=== PATIENT | female | born 1975 | race Caucasian/White ===

== ENCOUNTER 2021-12-11 16:10 | Observation (INO) ==
[2021-12-11] MEDS ORDERED: METOCLOPRAMIDE HCL INJ 5 MG/ML 2 ML VIAL IV ONE (16:23)
[2021-12-11] MEDS ORDERED: KETOROLAC TROMETHAMINE 15 MG/ML VIAL IV STA (16:23)
[2021-12-11] MEDS ORDERED: diphenhydrAMINE 50 MG/ML VIAL IV STA (16:23)
[2021-12-11] MEDS ORDERED: SODIUM CHLORIDE 0.9% 1000ML 1,000 ML IV ONE ×2 (16:23→20:00)
--- NOTE | 2021-12-11 16:42 | Emergency Department Note ---
History of Present Illness General Chief complaint: Vomiting Stated complaint: VOMITING, ABDOM PAIN Time Seen by Provider: 12/11/21 16:21 History of Present Illness Provider Complaint: + nausea, + vomiting and + abdominal pain Onset (ago): day(s) 5 Description of Vomiting: no bilious, no bloody or no coffee grounds Associated Abdominal Pain: Yes Location of pain: + diffuse Maximum Pain Intensity: 10 Current Pain Intensity: 9 Quality: + stabbing, + aching, + sharp and + dull Pain Consistency: + intermittent Relieved By: + none Exacerbated By: + eating and + vomiting Context: + marijuana use; no foreign travel, no possible food poisoning, no sick contacts, no recent antibiotic use, no recent surgery/procedure, no history of abdominal surgery, no alcohol abuse or no anticoagulant use Associated symptoms: + myalgias, + malaise and + bloating; no chest pain, no cough, no fever/chills, no headaches, no rash, no shortness of breath, no fecal incontinence, no tenesmus or no palpitation HPI Narrative: at bedside reports that the patient was seen in the emergency department 4 nights ago and was discharged. He states that after she was discharged she kept vomiting so he took her to an outside facility and they did blood work and a CAT scan and then released her but she continues to have vomiting. Home Medications Medication Instructions Recorded Confirmed Type ergocalciferol (vitamin D2) 1,250 1,250 mcg PO WK 12/08/21 12/11/21 History mcg (50,000 unit) capsule (Vitamin D2) gabapentin 100 mg tablet 100 mg PO TID 12/08/21 12/11/21 History mirtazapine 30 mg tablet (Remeron) 30 mg PO HS 12/08/21 12/11/21 History nortriptyline 50 mg capsule 100 mg PO HS 12/08/21 12/11/21 History ondansetron 4 mg disintegrating 4 mg PO Q6H PRN #12 tab 12/08/21 12/11/21 Rx tablet promethazine 25 mg rectal 25 mg SD Q6H PRN 12/08/21 12/11/21 History suppository promethazine 25 mg rectal 25 mg SD Q6H PRN #12 ea 12/08/21 12/11/21 Rx suppository promethazine 25 mg tablet 25 mg PO Q6H PRN 12/08/21 12/11/21 History rizatriptan 10 mg tablet (Maxalt) 10 mg PO DIRECTED PRN 12/08/21 12/11/21 History metoclopramide HCl 10 mg tablet 10 mg PO ACHS 12/11/21 12/11/21 History Allergies Allergy/AdvReac Type Severity Reaction Status Date / Time azithromycin [From Zithromax] Allergy Intermediate Rash Verified 12/08/21 01:09 divalproex sodium Allergy Intermediate Rash Verified 12/08/21 01:09 [From Depakote] erythromycin base Allergy Intermediate Rash Verified 12/08/21 01:09 lamotrigine [From Lamictal] Allergy Intermediate Rash Verified 12/08/21 01:09 MRI CONTRAST Allergy Intermediate SNEEZING, Uncoded 12/08/21 01:09 RASH Past Med/Surg History Medical History Cyclic vomiting syndrome Surgical History History of section History of cholecystectomy Social History Smoking Status: Never smoker Tobacco Type: E-cigarettes / Vaping Preferred Language: [place] Feels Safe at Home: Yes Review of Systems A total of 10 systems reviewed and were otherwise negative Physical Exam Vital Signs: Vital Signs - 24 hr 12/11/21 16:11 12/11/21 17:39 12/11/21 18:40 Temperature 36.0 C L Temperature Source Temporal Artery Sc an Pulse Rate 100 H 84 Pulse Rate [Left F christian] 99 H 78 Pulse Rhythm Regular Regular Pulse Rhythm [Left Finger] Regular Regular Pulse Strength Normal Pulse Strength [Le ft Finger] Normal Normal Respiratory Rate 22 20 20 Respiratory Effort / Characteristics Non-Labored Sponta neous Non-Labored Sponta neous Non-Labored Sponta neous Respiratory Depth Normal Normal Normal Respiratory Patter n Regular Regular Blood Pressure 132/92 Blood Pressure [Ri ght Arm] 146/85 H 157/95 H Blood Pressure Susan n 105 Blood Pressure Susan n [Right Arm] 105 115 Blood Pressure Pos ition [Right Arm] Sitting Sitting Pulse Oximetry 96 99 97 Oxygen Delivery Me thod Room Air Room Air Room Air Sepsis Recent Feve r Within 48 Hours No Sepsis New/Unexpla ined Change in Men elizabeth Status N/A Sepsis Action Take n by Nursing No Action Required 12/11/21 20:30 Temperature Temperature Source Pulse Rate Pulse Rate [Left F christian] 74 Pulse Rhythm Pulse Rhythm [Left Finger] Pulse Strength Pulse Strength [Le ft Finger] Respiratory Rate 18 Respiratory Effort / Characteristics Respiratory Depth Respiratory Patter n Blood Pressure Blood Pressure [Ri ght Arm] 165/103 H Blood Pressure Susan n Blood Pressure Susan n [Right Arm] 123 Blood Pressure Pos ition [Right Arm] Pulse Oximetry 99 Oxygen Delivery Me thod Room Air Sepsis Recent Feve r Within 48 Hours Sepsis New/Unexpla ined Change in Men elizabeth Status Sepsis Action Take n by Nursing Physical Exam: Physical Exam GENERAL: She is oriented to person, place, and time. She appears well-developed and well-nourished. She does not appear distressed. HENT: Exam performed. -Head: Normocephalic and atraumatic. -Right Ear: External ear normal. No mastoid tenderness. -Left Ear: External ear normal. No mastoid tenderness. -Mouth/Throat: The oropharynx is clear and moist. No trismus in the jaw. No dental abscesses or uvula swelling. No oropharyngeal exudate or tonsillar abscesses. EYES: Conjunctivae and EOM are normal. Pupils are equal, round, and reactive to light. Right eye exhibits no discharge. Left eye exhibits no discharge. No scleral icterus. NECK: Normal range of motion. Neck supple. No JVD present. No spinous process tenderness present. No carotid bruit present. No rigidity. No tracheal deviation and normal range of motion present. No Brudzinski's sign and no Kernig's sign noted. CV: Normal rate, regular rhythm, normal heart sounds and intact distal pulses. There is no peripheral edema. Palpable radial pulses bue. PULM/CHEST: Effort normal and breath sounds normal. No respiratory distress. No stridor. She has no wheezes. She has no rales. -Chest Wall: She exhibits no tenderness. ABD: The abdomen is soft. Bowel sounds are normal. She has no distension. No mass is present. There is no tenderness. There is no rebound, no guarding, no Arroyo's sign and no tenderness at McBurney's point. Rovsig negative MUSC/SKEL: Normal range of motion. There is no peripheral edema, tenderness or deformity. LYMPH: No cervical adenopathy. NEURO: She is alert and oriented to person, place, and time. She has normal strength. No cranial nerve deficit or sensory deficit. Coordination and gait normal. GCS eye subscore is 4. GCS verbal subscore is 5. GCS motor subscore is 6. Cerebellar tests wnl. SKIN: Skin is warm and dry. She is not diaphoretic. PSYCH: She has a normal mood and affect. Behavior is normal. Judgment and thought content normal. Course Course 1621: The patient was evaluated in room C7. A complete history and physical exam was performed Cardiac monitoring: An order was placed for continuous cardiac monitoring. The monitor shows a rate of 100 with sinus rhythm 1920: Vital signs stable. Labs show leukocytosis of 15. CT of the abdomen within normal limits. Patient is required multiple doses of analgesia and antiemetics in the emergency department. On reassessment the patient states she is still having abdominal pain nausea and vomiting does not feel like she can go home. The patient will be admitted to the [facility] hospitalist team Dr. Wayne notified. Administered Medications Ketorolac Tromethamine (Ketorolac Tromethamine 15 Mg/Ml Vial) 10 mg IV Q6H PRN PRN Reason: pain Stop: 12/16/21 23:14 Last Admin: 12/11/21 23:21 Dose: 10 mg Documented by: [id number] Discontinued Medications Acetaminophen (Acetaminophen 1000 Mg/100 Ml Iv) 1,000 mg IV ONE STA Stop: 12/11/21 19:52 Last Admin: 12/11/21 20:11 Dose: 1,000 mg Documented by: [id number] Al Hydrox/Mg Hydrox/Simethicone (Gi Cocktail Ed Use) 1 dose PO ONE STA Stop: 12/11/21 20:27 Last Admin: 12/11/21 20:40 Dose: 1 dose Documented by: [id number] Al Hydrox/Mg Hydrox/Simethicone (Gi Cocktail Ed Use) Confirm Administered Dose 1 dose PO .STK-MED ONE Stop: 12/11/21 20:29 Last Admin: 12/11/21 20:41 Dose: Not Given Documented by: [id number] Capsaicin (Capsaicin Cr 0.075% 60 Gm Tube) 1 appln EXT ONE STA Stop: 12/11/21 19:52 Last Admin: 12/11/21 20:41 Dose: 1 appln Documented by: [id number] Diclofenac Sodium (Diclofenac Sod 1% Gel 100 Gm Tube) 2 gm EXT ONE STA; Protocol Stop: 12/11/21 19:52 Last Admin: 12/11/21 20:41 Dose: 2 gm Documented by: [id number] Diphenhydramine HCl (Diphenhydramine 50 Mg/Ml Vial) 25 mg IV NOW STA Stop: 12/11/21 16:24 Last Admin: 12/11/21 16:38 Dose: 25 mg Documented by: [id number] Sodium Chloride (Nss 1000ml) 1,000 mls @ 999 mls/hr IV .Q1H1M ONE Stop: 12/11/21 17:23 Last Infusion: 12/11/21 18:11 Dose: 0 mls/hr Documented by: [id number] Admin: 12/11/21 16:38 Dose: 999 mls/hr Documented by: [id number] Sodium Chloride (Nss 1000ml) 1,000 mls @ 999 mls/hr IV .Q1H1M ONE Stop: 12/11/21 21:00 Last Infusion: 12/11/21 21:56 Dose: 0 mls/hr Documented by: [id number] Admin: 12/11/21 20:53 Dose: 999 mls/hr Documented by: [id number] Potassium Chloride (K Filippo / Wtr) 10 meq in 100 mls @ 100 mls/hr IV ONE ONE; Protocol Stop: 12/11/21 20:59 Last Infusion: 12/11/21 21:56 Dose: 0 mls/hr Documented by: [id number] Admin: 12/11/21 20:40 Dose: 100 mls/hr Documented by: [id number] Sodium Chloride (Nss 1000ml) 1,000 mls @ 100 mls/hr IV .Q10H KRISTEN Stop: 12/12/21 17:59 Last Admin: 12/11/21 23:14 Dose: 100 mls/hr Documented by: [id number] Ioversol (Optiray 320 100ml) 91 ml IV ONCE ONE Stop: 12/11/21 18:27 Last Admin: 12/11/21 18:28 Dose: 91 ml Documented by: [id number] Ketorolac Tromethamine (Ketorolac Tromethamine 15 Mg/Ml Vial) 15 mg IV NOW STA Stop: 12/11/21 16:24 Last Admin: 12/11/21 16:38 Dose: 15 mg Documented by: [id number] Metoclopramide HCl (Metoclopramide Hcl Inj 5 Mg/Ml 2 Ml Vial) 5 mg IV ONE ONE Stop: 12/11/21 16:24 Last Admin: 12/11/21 16:38 Dose: 5 mg Documented by: [id number] Mirtazapine (Mirtazapine Tab 15 Mg Tab) 30 mg PO NOW STA Stop: 12/11/21 21:56 Last Admin: 12/11/21 23:14 Dose: 30 mg Documented by: [id number] Morphine Sulfate (Morphine Sulfate 4 Mg/Ml 1 Ml Carp\Vial) 4 mg IV NOW STA Stop: 12/11/21 18:27 Last Admin: 12/11/21 18:37 Dose: 4 mg Documented by: [id number] Nortriptyline HCl (Nortriptyline Hcl 25 Mg Cap) 100 mg PO ONE STA Stop: 12/11/21 19:52 Last Admin: 12/11/21 20:41 Dose: 100 mg Documented by: [id number] Ondansetron HCl (Ondansetron Inj 2 Mg/Ml 2 Ml Vial) 4 mg IV NOW STA Stop: 12/11/21 16:37 Last Admin: 12/11/21 18:37 Dose: 4 mg Documented by: [id number] Medical Decision Making Laboratory Data Result diagrams: 12/11/21 16:33 12/11/21 22:33 Lab Results 12/11/21 12/11/21 12/11/21 Range/Units 16:33 16:33 16:33 WBC 15.42 H (4.8-10.8) K/uL RBC 4.90 (4.2-5.4) M/uL Hgb 15.2 (12.0-16.0) g/dL POC Hgb (12.0-16.0) g/dl Hct 43.7 (37-47) % POC Hct (37-47) % MCV 89.2 (80-100) fL MCH 31.0 (25-34) pg MCHC 34.8 (32-36) g/dL RDW Std Deviation 39.5 (36.4-46.3) fL RDW Coeff of Alex 12.3 (11.5-14.5) % Plt Count 446 H (130-400) K/uL MPV 9.0 (7.4-10.4) fL Immature Gran % (Auto) 0.2 % Neut % (Auto) 84.1 % Lymph % (Auto) 11.3 % [place] % (Auto) 3.9 % Eos % (Auto) 0.2 % Baso % (Auto) 0.3 % Neut # (Auto) 12.97 H (1.4-6.5) K/uL Lymph # (Auto) 1.74 (1.2-3.4) K/uL [place] # (Auto) 0.60 H (0.11-0.59) K/uL Eos # (Auto) 0.03 (0-0.5) K/uL Baso # (Auto) 0.05 (0-0.2) K/uL Immature Gran # (Auto) 0.03 H (0.00-0.02) K/uL POC Sodium (135-144) mmol/L Sodium 141 (136-145) mmol/L POC Potassium (3.3-5.0) mmol/L Potassium TNP POC Chloride (101-112) mmol/L Chloride 103 (98-107) mmol/L Carbon Dioxide 24 (21-32) mmol/L POC Total CO2 (24-31) mmol/L Anion Gap 14 H (3-11) POC Anion Gap (16-25) mmol/L POC BUN (7-18) mg/dl BUN 29 H (6-23) mg/dl Creatinine 0.92 (0.6-1.2) mg/dl POC Creatinine (0.6-1.3) mg/dl Est Cr Clr Drug Dosing 73.3 ml/min Est GFR ( Amer) 87.2 ml/min Est GFR (Non-Af Amer) 75.2 ml/min BUN/Creatinine Ratio 31.5 H (10-20) Glucose 140 H (70-99(Fasting)) mg/dl POC Glucose (other) (70-99) mg/dl Calcium 9.9 (8.5-10.1) mg/dl POC Ioniz Calcium Heather (1.12-1.32) mmol/l Total Bilirubin 0.9 (0.2-1.0) mg/dl Direct Bilirubin TNP AST TNP ALT 42 (7-52) U/L Alkaline Phosphatase 73 (34-104) U/L Total Protein 8.2 (6.0-8.3) gm/dl Albumin 4.9 (3.4-5.0) gm/dl Lipase 14 (11-82) U/L Lyme Disease IgG Ab Negative (Negative) Lyme Disease IgM Ab Equivocal A (Negative) SARS-CoV-2, RNA, NAAT (NEGATIVE) 12/11/21 12/11/21 Range/Units 18:04 18:42 WBC (4.8-10.8) K/uL RBC (4.2-5.4) M/uL Hgb (12.0-16.0) g/dL POC Hgb 14.3 (12.0-16.0) g/dl Hct (37-47) % POC Hct 42 (37-47) % MCV (80-100) fL MCH (25-34) pg MCHC (32-36) g/dL RDW Std Deviation (36.4-46.3) fL RDW Coeff of Alex (11.5-14.5) % Plt Count (130-400) K/uL MPV (7.4-10.4) fL Immature Gran % (Auto) % Neut % (Auto) % Lymph % (Auto) % [place] % (Auto) % Eos % (Auto) % Baso % (Auto) % Neut # (Auto) (1.4-6.5) K/uL Lymph # (Auto) (1.2-3.4) K/uL [place] # (Auto) (0.11-0.59) K/uL Eos # (Auto) (0-0.5) K/uL Baso # (Auto) (0-0.2) K/uL Immature Gran # (Auto) (0.00-0.02) K/uL POC Sodium 142 (135-144) mmol/L Sodium (136-145) mmol/L POC Potassium 3.0 L (3.3-5.0) mmol/L Potassium POC Chloride 106 (101-112) mmol/L Chloride (98-107) mmol/L Carbon Dioxide (21-32) mmol/L POC Total CO2 22 L (24-31) mmol/L Anion Gap (3-11) POC Anion Gap 18.0 (16-25) mmol/L POC BUN 24 H (7-18) mg/dl BUN (6-23) mg/dl Creatinine (0.6-1.2) mg/dl POC Creatinine 0.8 (0.6-1.3) mg/dl Est Cr Clr Drug Dosing ml/min Est GFR ( Amer) ml/min Est GFR (Non-Af Amer) ml/min BUN/Creatinine Ratio (10-20) Glucose (70-99(Fasting)) mg/dl POC Glucose (other) 105 H (70-99) mg/dl Calcium (8.5-10.1) mg/dl POC Ioniz Calcium Heather 1.12 (1.12-1.32) mmol/l Total Bilirubin (0.2-1.0) mg/dl Direct Bilirubin AST ALT (7-52) U/L Alkaline Phosphatase (34-104) U/L Total Protein (6.0-8.3) gm/dl Albumin (3.4-5.0) gm/dl Lipase (11-82) U/L Lyme Disease IgG Ab (Negative) Lyme Disease IgM Ab (Negative) SARS-CoV-2, RNA, NAAT NEGATIVE (NEGATIVE) Imaging Data Radiologist's Impression: Abdomen/Pelvis CT 12/11/21 16:23 CT abd pelvis IV con only CLINICAL HISTORY: nv TECHNIQUE: Helical axial images of the abdomen and pelvis were obtained and displayed. Automated dose lowering techniques and/or adjustment according to patient size were utilized for this exam. This exam was performed with intravenous contrast. CT DOSE: 295.54 mGy.cm COMPARISON: None available at the time of this dictation. FINDINGS: Lower chest: No acute abnormality Liver: Hepatic steatosis is noted. Gallbladder and biliary tree: Patient is status post cholecystectomy. No intra- or extrahepatic biliary ductal dilation. Pancreas: Unremarkable, no focal lesions. Spleen: Unremarkable. Adrenals: There is a left adrenal nodule measuring 14 mm in diameter. Kidneys and ureters: Bilateral renal cysts noted. Bladder: Limited evaluation due to underdistention. Reproductive organs: Unremarkable. Bowel: Unremarkable appearance of the bowel. The appendix is normal. No evidence of bowel obstruction. There is a moderate hiatal hernia. Lymph nodes Retroperitoneal: Unremarkable. Mesenteric: Unremarkable. Pelvic: Unremarkable. Peritoneum: Metallic densities are seen in the left upper quadrant. Otherwise no abnormalities are seen. Vessels: Unremarkable. Abdominal wall: Unremarkable. Bones: Degenerative changes in the visualized spine. IMPRESSION: No acute abnormalities, in particular no evidence of bowel obstruction or pancreatitis. ACT 112: Negative or not required by law. Electronically signed by: Arvin Mancia M.D. 12/11/2021 7:09 PM MDM Narrative Vital signs stable. Labs show leukocytosis of 15. CT of the abdomen within normal limits. Patient is required multiple doses of analgesia and antiemetics in the emergency department. On reassessment the patient states she is still having abdominal pain nausea and vomiting does not feel like she can go home. The patient will be admitted to the [facility] hospitalist team Dr. Wayne notified. Impression & Plan Intractable nausea and vomiting Discharge Plan Visit Data Chief Complaint: Vomiting Stated Complaint: VOMITING, ABDOM PAIN ED Provider: Oseas Still Discharge Problem: Intractable nausea and vomiting Patient Disposition: Admitted As Inpatient Discharge Instructions Interventions: ED Discharge Assessment Last Done: 12/11/21 22:39
[2021-12-11 16:55] LABS: Basophils # (auto) 0.05 K/uL (0-0.2); Basophils % (auto) 0.3 %; Eosinophils # (auto) 0.03 K/uL (0-0.5); Eosinophils % (auto) 0.2 %; Hematocrit (blood only) 43.7 % (37-47); Hemoglobin 15.2 g/dL (12.0-16.0); Immature Granulocytes # (auto) 0.03 K/uL (0.00-0.02); Immature Granulocytes % (auto) 0.2 %; Lymphocytes # (auto) 1.74 K/uL (1.2-3.4); Lymphocytes % (auto) 11.3 %; Mean Corpuscular Hgb Conc 34.8 g/dL (32-36); Mean Corpuscular Volume 89.2 fL (80-100); Monocytes % (auto) 3.9 %; Neutrophils # (auto) 12.97 K/uL (1.4-6.5); Neutrophils % (auto) 84.1 %; Platelet Count 446 K/uL (130-400); RDW Coefficient of Variation 12.3 % (11.5-14.5); RDW Standard Deviation 39.5 fL (36.4-46.3); White Blood Count 15.42 K/uL (4.8-10.8)
[2021-12-11 17:46] LABS: Alanine Aminotransferase 42 U/L (7-52); Albumin Level 4.9 gm/dl (3.4-5.0); Alkaline Phosphatase 73 U/L (34-104); Anion Gap 14 (3-11); BUN Creatinine Ratio 31.5 (10-20); Bilirubin,Total 0.9 mg/dl (0.2-1.0); Blood Urea Nitrogen 29 mg/dl (6-23); Calcium 9.9 mg/dl (8.5-10.1); Carbon Dioxide 24 mmol/L (21-32); Chloride 103 mmol/L (98-107); Creatinine Clr Calc Pharmacy 73.3 ml/min; Est GFR (African American) 87.2 ml/min; Est GFR (Non-African American) 75.2 ml/min; Glucose 140 mg/dl (70-99(Fasting)); Lipase 14 U/L (11-82); Sodium 141 mmol/L (136-145); Total Protein 8.2 gm/dl (6.0-8.3)
[2021-12-11 18:08] LABS: Lyme Ab IgG w/WB Rflx Negative (Negative)
[2021-12-11] MEDS: ONDANSETRON INJ 2 MG/ML 2 ML VIAL IV STA ×2 (18:11→18:37)
[2021-12-11 18:16] LABS: iSTAT Creatinine 0.8 mg/dl (0.6-1.3); iSTAT Hemoglobin 14.3 g/dl (12.0-16.0); iSTAT Ionized Calcium 1.12 mmol/l (1.12-1.32)
[2021-12-11] MEDS ORDERED: OPTIRAY 320 100ml IV ONE (18:26)
[2021-12-11] MEDS ORDERED: MoRPHine SULFATE 4 MG/ML 1 ML CARP\\VIAL IV STA (18:26)
[2021-12-11 18:36] LABS: Lyme Ab IgM w/WB Rflx Equivocal (Negative)
--- NOTE | 2021-12-11 19:11 | CT Scan Report ---
CT abd pelvis IV con only CLINICAL HISTORY: nv TECHNIQUE: Helical axial images of the abdomen and pelvis were obtained and displayed. Automated dose lowering techniques and/or adjustment according to patient size were utilized for this exam. This e xam was performed with intravenous contrast. CT DOSE: 295.54 mGy.cm COMPARISON: None available at the time of this dictation. FINDINGS: Lower chest: No acute abnormality Liver: Hepatic steatosis is noted. Gallbladder and biliary tree: Patient is status post cholecystectomy. No intra- or extrahepatic bilia ry ductal dilation. Pancreas: Unremarkable, no focal lesions. Spleen: Unremarkable. Adrenals: There is a left adrenal nodule measuring 14 mm in diameter. Kidneys and ureters: Bilateral renal cysts noted. Bladder: Limited evaluation due to underdistention. Reproductive organs: Unremarkable. Bowel: Unremarkable appearance of the bowel. The appendix is normal. No evidence of bowel obstruction . There is a moderate hiatal hernia. Lymph nodes Retroperitoneal: Unremarkable. Mesenteric: Unremarkable. Pelvic: Unremarkable. Peritoneum: Metallic densities are seen in the left upper quadrant. Otherwise no abnormalities are se en. Vessels: Unremarkable. Abdominal wall: Unremarkable. Bones: Degenerative changes in the visualized spine. IMPRESSION: No acute abnormalities, in particular no evidence of bowel obstruction or pancreatitis. ACT 112: Negative or not required by law. Electronically signed by: Arvin Mancia M.D. 12/11/2021 7:09 PM
--- NOTE | 2021-12-11 19:47 | History & Physical Report ---
Date of Service December 11, 2021 Assessment & Plan (1) Intractable nausea and vomiting: Plan: 46 year old female w/ PMHx of anxiety, marijuana use, and cyclic vomiting syndrome who presents w/ intractable nausea, vomiting, and associated epigastric abd pain. - CT abd: No acute abnormalities, in particular no evidence of bowel obstruction or pancreatitis. - labs reviewed: hypokalemia, leukocytosis, slight anion gap - reassuring exam; appears euvolemic; good cap refill. BP slightly hypertensive. - replete electrolytes as needed - antiemetics, pain control as needed - has prior diagnosis of cyclic vomiting syndrome. considered cannabanoid hyperemesis syndrome given current use. 12/08/21 UDS w/ >5000 marijuana. lower suspicion for gastroenteritis or gallbladder pathology (s/p cholecystectomy) - trialed topical capsaicin w/o relief - will check trop and ecg, pending - maintenance fluids (2) Epigastric abdominal pain: Plan: - see above (3) Cyclic vomiting syndrome: Plan: - noted hx of (4) Hypokalemia: Plan: - repleting (5) Leukocytosis: Plan: - most likely reactive 2/2 vomiting - lower suspicion for UTI (12/08/21 urine culture growing lactobacillus; no urinary symptoms), sepsis, gastroenteritis (6) Adrenal nodule: Plan: - per CT abd: Left adrenal nodule is noted measuring greater density than lipid rich adenoma. If not characterized, nonemergent adrenal mass protocol can be performed. - outpatient follow up Plan: FEN/GI: Clear liquid diet. maintenance NSS 100mL/hr code: full ppx: scds dispo: med surg History of Present Illness Chief Complaint: nausea, vomiting, and abdominal pain Primary Care Provider: Shyam Rdz 46 year old female w/ PMHx of anxiety, marijuana use, and cyclic vomiting syndrome who presents w/ intractable nausea, vomiting, and associated epigastric abd pain since 12/07/21. She describes 15 hours of multiple episodes of N/V during onset. She was seen at [facility] ED on 12/08/21 and was sent home. She returns today for continued symptoms. Her main complaint today is nausea, vomiting (foodstuffs) and 10/10 epigastric abd pain. Last emesis was after going to CT scan. She has not taken her home PO meds in several days. Currently, aside from nausea and abd pain, she does have anxiety. Denies fever/chills, chest pain, SOB, urinary symptoms. Patient states that she was diagnosed w/ cyclic vomiting syndrome by an outside provider after trialing 1 year off of marijuana w/ continued symptoms. She has been on nortriptyline 100mg qhs for the past year and states this helped control her vomiting symptoms greatly. Patient follows a linen checker in [place] for HTN. She states she had workup in past for chest pain radiating to arms, but was not thought to be ischemia related and has not had stress test. ED course: IV morphine, Reglan, Benadrl, toradol, NSS. Considered home dispo, but trialed IV tylenol, home dose nortriptyline, topical capsaicin, Voltaren gel, GI cocktail w/o relief on re-exam. Allergies Allergy/AdvReac Type Severity Reaction Status Date / Time azithromycin [From Zithromax] Allergy Intermediate Rash Verified 12/08/21 01:09 divalproex sodium Allergy Intermediate Rash Verified 12/08/21 01:09 [From Depakote] erythromycin base Allergy Intermediate Rash Verified 12/08/21 01:09 lamotrigine [From Lamictal] Allergy Intermediate Rash Verified 12/08/21 01:09 MRI CONTRAST Allergy Intermediate SNEEZING, Uncoded 12/08/21 01:09 RASH Home Medications Medication Instructions Recorded Confirmed Type ergocalciferol (vitamin D2) 1,250 1,250 mcg PO WK 12/08/21 12/11/21 History mcg (50,000 unit) capsule (Vitamin D2) gabapentin 100 mg tablet 100 mg PO TID 12/08/21 12/11/21 History mirtazapine 30 mg tablet (Remeron) 30 mg PO HS 12/08/21 12/11/21 History nortriptyline 50 mg capsule 100 mg PO HS 12/08/21 12/11/21 History ondansetron 4 mg disintegrating 4 mg PO Q6H PRN #12 tab 12/08/21 12/11/21 Rx tablet promethazine 25 mg rectal 25 mg MD Q6H PRN 12/08/21 12/11/21 History suppository promethazine 25 mg rectal 25 mg MD Q6H PRN #12 ea 12/08/21 12/11/21 Rx suppository promethazine 25 mg tablet 25 mg PO Q6H PRN 12/08/21 12/11/21 History rizatriptan 10 mg tablet (Maxalt) 10 mg PO DIRECTED PRN 12/08/21 12/11/21 History metoclopramide HCl 10 mg tablet 10 mg PO ACHS 12/11/21 12/11/21 History Past Med/Surg History Medical History Cyclic vomiting syndrome Surgical History History of section History of cholecystectomy Social History Smoking Status: Never smoker Tobacco Type: E-cigarettes / Vaping Preferred Language: Japanese Feels Safe at Home: Yes Review of Systems Review of Systems: mild photophobia As per HPI. Physical Exam Physical Exam: General: Grossly A&O. NAD. Cooperative. HEENT: Atraumatic, normocephalic. EOMI. PERRL. Pulm: CTAB. -wheezes, -rales, -rhonchi. Symmetrical chest rise. No respiratory distress. Cardiac: RRR, -mrg. Radial pulses intact and symmetrical. No LE edema. Cap refill <2s. Abdominal: Mild diffuse abd ttp, worst at epigastrium. No rigidity. Nondistended, soft. Msk: Moving all extremities. Neuro: Normal strength and sensation of extremities. Integ: Warm, dry, and intact. Results & Data Results & Data ([facility]) Vital Signs (Past 12 Hours) Vital Signs Temp Pulse Pulse Resp BP BP Pulse Ox 12/11/21 18:40 78 20 157/95 H 97 12/11/21 17:39 84 99 H 20 146/85 H 99 12/11/21 16:11 36.0 C L 100 H 22 132/92 96 Laboratory Results Cardiac Enzymes 12/11/21 Range/Units 16:33 AST TNP CBC 12/11/21 Range/Units 16:33 WBC 15.42 H (4.8-10.8) K/uL RBC 4.90 (4.2-5.4) M/uL Hgb 15.2 (12.0-16.0) g/dL Hct 43.7 (37-47) % Plt Count 446 H (130-400) K/uL Neut # (Auto) 12.97 H (1.4-6.5) K/uL Lymph # (Auto) 1.74 (1.2-3.4) K/uL Allen # (Auto) 0.60 H (0.11-0.59) K/uL Eos # (Auto) 0.03 (0-0.5) K/uL Baso # (Auto) 0.05 (0-0.2) K/uL Comprehensive Metabolic Panel 12/11/21 Range/Units 16:33 Sodium 141 (136-145) mmol/L Potassium TNP Chloride 103 (98-107) mmol/L Carbon Dioxide 24 (21-32) mmol/L BUN 29 H (6-23) mg/dl Creatinine 0.92 (0.6-1.2) mg/dl Glucose 140 H (70-99(Fasting)) mg/dl Calcium 9.9 (8.5-10.1) mg/dl Direct Bilirubin TNP AST TNP ALT 42 (7-52) U/L Alkaline Phosphatase 73 (34-104) U/L Total Protein 8.2 (6.0-8.3) gm/dl Albumin 4.9 (3.4-5.0) gm/dl Intake and Output 12/11/21 12/11/21 12/11/21 06:59 14:59 22:59 Intake Total 1000 / 1000 Balance 1000 / 1000 Intake: IV 1000 / 1000 Sodium Chloride 0.9% 1000ML 1, 1000 / 1000 000 ml @ 999 mls/hr IV .Q1H1M ONE Rx#:[id number] Other: Weight 68.2 kg Weight Measurement Method Chair Scale Patient Weight 12/12/21 06:59 Weight 68.2 kg Diagnostic Findings Abdomen/Pelvis CT 12/11/21 16:23 CT abd pelvis IV con only CLINICAL HISTORY: nv TECHNIQUE: Helical axial images of the abdomen and pelvis were obtained and displayed. Automated dose lowering techniques and/or adjustment according to patient size were utilized for this exam. This exam was performed with intravenous contrast. CT DOSE: 295.54 mGy.cm COMPARISON: None available at the time of this dictation. FINDINGS: Lower chest: No acute abnormality Liver: Hepatic steatosis is noted. Gallbladder and biliary tree: Patient is status post cholecystectomy. No intra- or extrahepatic biliary ductal dilation. Pancreas: Unremarkable, no focal lesions. Spleen: Unremarkable. Adrenals: There is a left adrenal nodule measuring 14 mm in diameter. Kidneys and ureters: Bilateral renal cysts noted. Bladder: Limited evaluation due to underdistention. Reproductive organs: Unremarkable. Bowel: Unremarkable appearance of the bowel. The appendix is normal. No evidence of bowel obstruction. There is a moderate hiatal hernia. Lymph nodes Retroperitoneal: Unremarkable. Mesenteric: Unremarkable. Pelvic: Unremarkable. Peritoneum: Metallic densities are seen in the left upper quadrant. Otherwise no abnormalities are seen. Vessels: Unremarkable. Abdominal wall: Unremarkable. Bones: Degenerative changes in the visualized spine. IMPRESSION: No acute abnormalities, in particular no evidence of bowel obstruction or pancreatitis. ACT 112: Negative or not required by law. Electronically signed by: Arvin Mancia M.D. 12/11/2021 7:09 PM Code Status & VTE Plan Code Status full VTE Prophylaxis Plan VTE Prophylaxis will be ordered: Yes Supervising Physician Co-Signing Physician Notes Pt seen/examined in conjunction with resident MD Nehemiah Wilson. Orders and plan of admission formulated with resident. 46 y/o F Hx migraine disorder, anxiety disorder, cyclical vomiting disorder. Presents with nausea, vomiting and abdominal pain x 4 days. She was treated in the ER 2 days prior but has not been able to maintain PO intake after DC. Labs are notable for leukocytosis, thrombocytosis, hypokalemia, mild hypocalcemia. A CT abdomen did not show any acute abnormalities. A L adrenal nodule is present. O/E General: AAO x 3, no distress ENT: No erythema or exudates, no thrush Eyes: AJ, EOMI Head and neck: Normocephalic, atraumatic, No JVD, neck is supple. Chest/heart: Nontender, S1,2, RRR, no murmurs, no gallops Lungs: CTAB, no wheezing or crackles Abdomen: Nontender, nondistended, BS+ Neuro: AAO x 3, speech is clear, no unilateral weakness or loss of sensation, coordination intact Musculoskeletal: No joint inflammation, muscle tenderness, FROM Skin: No acute rashes or ulcers Extremities: No clubbing, cyanosis, edema A/P 1) Cyclical vomiting and abdominal pain - She has not responded to multiple antiemetics, capsaicin and her home medications including nortriptyline. IVF, NPO, GI consult. The pt smokes marijuana regularly, but states that she had quit for 1 year and it was determined that marijuana was not causing her cyclical vomiting. 2) Leukocytosis and thrombocytosis - no evidence of infection. This may be stress and dehydration. A UA is pending. 3) Anxiety - cont mirtazapine, nortriptyline. 4) Hypocalcemia is mild - will trend BMP AM - consider IV calcium if trends down. Total time for this admission including review of labs, meds, imaging, records, discussion with pt and ER attending - 38 min Resident Activity Tracking Resident Involvement: Resident Care Provided Care Provided: Adult [facility] Medicine
[2021-12-11] MEDS ORDERED: CAPSAICIN CR 0.075% 60 GM TUBE EXT STA (19:51)
[2021-12-11] MEDS ORDERED: NORTRIPTYLINE HCL 25 MG CAP PO STA (19:51)
[2021-12-11] MEDS ORDERED: DICLOFENAC SOD 1% GEL 100 GM TUBE EXT STA (19:51)
[2021-12-11] MEDS ORDERED: ACETAMINOPHEN 1000 MG/100 ML IV IV STA (19:51)
[2021-12-11] MEDS ORDERED: POTASSIUM CHLORIDE / WTR 10 MEQ/100 ML PLCT IV ONE (20:00)
[2021-12-11] MEDS ORDERED: GI COCKTAIL ED USE PO STA (20:26)
[2021-12-11] MEDS ORDERED: GI COCKTAIL ED USE PO ONE (20:28)
[2021-12-11] MEDS ORDERED: MIRTAZAPINE TAB 15 MG TAB PO STA (21:55)
[2021-12-11] MEDS ORDERED: SODIUM CHLORIDE 0.9% 1000ML 1,000 ML IV SCH (22:00)
[2021-12-11 23:16] LABS: BUN Creatinine Ratio 23.5 (10-20); Calcium 8.2 mg/dl (8.5-10.1); Creatinine Clr Calc Pharmacy 99.1 ml/min; Est GFR (African American) 122.4 ml/min; Est GFR (Non-African American) 105.6 ml/min; Magnesium 1.9 mg/dl (1.7-2.4); Potassium 3.8 mmol/L (3.5-5.1)
[2021-12-11 23:21] LABS: Troponin I High Sensitivity 6.2 pg/ml (0-14)
[2021-12-11] MEDS: KETOROLAC TROMETHAMINE 15 MG/ML VIAL IV PRN (23:21)
[2021-12-12] MEDS: D5NSS + 20MEQ KCL 20 MEQ/1,000 ML BAG IV SCH ×2 (00:43→12:01)
[2021-12-12] MEDS: ACETAMINOPHEN 1,000 MG/100 ML VIAL IV SCH ×2 (04:26→13:35)
[2021-12-12] MEDS ORDERED: ACETAMINOPHEN 1000 MG/100 ML IV IV SCH (05:00)
[2021-12-12 05:25] LABS: Appearance Urine Clear (Clear); Bilirubin Urine Negative (Negative); Blood Urine Negative (Negative); Color Urine Yellow; Glucose Urine UA Negative (Negative); Ketones Urine 1+ (Negative); Leukocyte Esterase Urine Negative (Negative); Nitrite Urine Negative (Negative); Protein Urine Negative (Negative); Specific Gravity Urine 1.019 (1.000-1.030); Urobilinogen Urine Negative (Negative)
--- NOTE | 2021-12-12 07:59 | Hospitalist Progress Note ---
Date of Service December 12, 2021 Assessment & Plan (1) Intractable nausea and vomiting: Plan: 46 year old female w/ PMHx of anxiety, marijuana use, and cyclic vomiting syndrome who presents w/ intractable nausea, vomiting, and associated epigastric abd pain. CTA/P : no obstruction/pancreatitis Of note, prior lipase 10, ?rojas insuff Does note Left adrenal nodule is noted measuring greater density than lipid rich adenoma. If not characterized, nonemergent adrenal mass protocol can be performed. Continue IVF w/ D5/20k to complete 2nd bag, anion gap closed Additional 20meq PO Kcl Antiemetics, pain control prn Low susp for GB pathology (s/p chasity), TB/ALp wnl EKG NSR/sinus athymia, trop 6.2 high sens Lipase 14 (prior 10L), ?rojas insuff Lyme IgM +, IgG negative. Never tx for Lyme in past Started Ceftriaxone IV (avoid doxy at first given GI issues) Monitor WB Started pepcid IV given continued issue for patient w/ n/v and would continue vs PPI at d/c Continued inpatient stay Prior dx Cyclic vomiting syndrome, follows with GI in [place], Dr Campos Does have MMJ card. UDS 12/08 w/ >5000 marijuana. On medications for her CVS topical capsaicin w/o relief (2) Epigastric abdominal pain: Plan: - see above, improving (3) Cyclic vomiting syndrome: Plan: - noted hx of, follows in [place] with Dr Campos (4) Hypokalemia: Plan: - repleting, improved but additional 20meq po x 1 mag wnl monitor AM BMP f/u adrenal nodule (5) Leukocytosis: Plan: most likely reactive 2/2 vomiting - lower suspicion for UTI (12/08/21 urine culture growing lactobacillus; no urinary symptoms), sepsis, gastroenteritis resolved on repeat but tx for possible lyme as above (6) Adrenal nodule: Plan: Per CT abd: Left adrenal nodule is noted measuring greater density than lipid rich adenoma. If not characterized, nonemergent adrenal mass protocol can be performed. - outpatient follow up Plan: DVT Proph: SCDs, ambulation Advance diet as tolerated Continued inpatient stay, possible d/c in AM Admission and Anticipated Discharge Date Admission Date: December 11, 2021 Subjective Patient evaluated this morning. Feeling better than admission. Had been having epigastric pain with radiation to her R back. Hx cholecystectomy. Some nausea but improved with medications. States follows GI specialist in [place] for her CVS and that's why shes on the nortiptyline/remeron/etc. States has follow up soon. Not on acid reducing medication, discussed added pepcid and would continue this. Incidentally noted hx rhabdo x 5 years ago after spin class. Has had thyroid checked in the past. Also noted she has follow up with cardiology-- inquired as to why. She notes she had had some numbness/tingling in her left arm in past with elevated blood pressures and may need to be on BP agents. Discussed +Lyme IgM, patient never tx for lyme in past. No new rashes/bullseye and had seen in a relative a couple years ago. Discussed tx w/ ceftriaxone for now and transition to doxy in AM. Discussed needing f/u for adrenal nodule. If stable/feeling improved plans for d/c in AM. No fever/chill, cp/sob, diarrhea or other symptoms voiced at this time. Review of Systems Review of Systems: All systems reviewed & are unremarkable except as noted in HPI & below Physical Exam Physical Exam: General: WD/WN female sitting up in bed, NAD HEENT: Atraumatic, normocephalic. EOMI. PERRL. Pulm: CTAB, no w/c/r, on room air CV: RRR, no m/r/g, no calf edema/tenderness, cap refill wnl GI: +BS, soft, minimal tenderness to palpation epigastric region : no gonzalez, no CVA tenderness MSK/NEURO: NVI, moves all extremities, no focal deficit, no facial droop, no meningeal signs Skin: warm, dry, no rashes Psych: AOx3, cooperative Results & Data Results & Data ([place]) Vital Signs (Past 12 Hours) Vital Signs Temp Pulse Resp BP Pulse Ox 12/12/21 07:28 36.9 C 88 18 137/87 98 12/11/21 22:50 36.7 C 72 16 169/89 H 100 12/11/21 20:30 74 18 165/103 H 99 Laboratory Results 12/12/21 12/12/21 12/12/21 Range/Units 08:36 08:36 04:20 WBC 7.83 (4.8-10.8) K/uL RBC 4.32 (4.2-5.4) M/uL Hgb 13.2 (12.0-16.0) g/dL POC Hgb (12.0-16.0) g/dl Hct 38.3 (37-47) % POC Hct (37-47) % MCV 88.7 (80-100) fL MCH 30.6 (25-34) pg MCHC 34.5 (32-36) g/dL RDW Std Deviation 39.7 (36.4-46.3) fL RDW Coeff of Alex 12.4 (11.5-14.5) % Plt Count 409 H (130-400) K/uL MPV 8.8 (7.4-10.4) fL Immature Gran % (Auto) 0.3 % Neut % (Auto) 68.8 % Lymph % (Auto) 23.2 % [place] % (Auto) 6.9 % Eos % (Auto) 0.5 % Baso % (Auto) 0.3 % Neut # (Auto) 5.39 (1.4-6.5) K/uL Lymph # (Auto) 1.82 (1.2-3.4) K/uL [place] # (Auto) 0.54 (0.11-0.59) K/uL Eos # (Auto) 0.04 (0-0.5) K/uL Baso # (Auto) 0.02 (0-0.2) K/uL Immature Gran # (Auto) 0.02 (0.00-0.02) K/uL POC Sodium (135-144) mmol/L Sodium 139 (136-145) mmol/L POC Potassium (3.3-5.0) mmol/L Potassium 3.2 L POC Chloride (101-112) mmol/L Chloride 106 (98-107) mmol/L Carbon Dioxide 27 (21-32) mmol/L POC Total CO2 (24-31) mmol/L Anion Gap 6 (3-11) POC Anion Gap (16-25) mmol/L POC BUN (7-18) mg/dl BUN 8 (6-23) mg/dl Creatinine 0.63 (0.6-1.2) mg/dl POC Creatinine (0.6-1.3) mg/dl Est Cr Clr Drug Dosing 108.2 ml/min Est GFR ( Amer) 125.6 ml/min Est GFR (Non-Af Amer) 108.3 ml/min BUN/Creatinine Ratio 12.7 (10-20) Glucose 112 H (70-99(Fasting)) mg/dl POC Glucose (other) (70-99) mg/dl Calcium 8.6 (8.5-10.1) mg/dl POC Ioniz Calcium Heather (1.12-1.32) mmol/l Magnesium 2.1 (1.7-2.4) mg/dl Total Bilirubin (0.2-1.0) mg/dl Direct Bilirubin AST ALT (7-52) U/L Alkaline Phosphatase (34-104) U/L Troponin I High Sens (0-14) pg/ml Total Protein (6.0-8.3) gm/dl Albumin (3.4-5.0) gm/dl Lipase (11-82) U/L Urine Color Yellow Urine Appearance Clear (Clear) Urine pH 7.0 (4.5-7.5) Ur Specific [place] 1.019 (1.000-1.030) Urine Protein Negative (Negative) Urine Glucose (UA) Negative (Negative) Urine Ketones 1+ H (Negative) Urine Blood Negative (Negative) Urine Nitrite Negative (Negative) Urine Bilirubin Negative (Negative) Urine Urobilinogen Negative (Negative) Ur Leukocyte Esterase Negative (Negative) Lyme Disease IgG Ab (Negative) Lyme IgG (Western Blot) Lyme IgG 18 kDa Band Lyme IgG 23 kDa Band Lyme IgG 28 kDa Band Lyme IgG 30 kDa Band Lyme IgG 39 kDa Band Lyme IgG 41 kDa Band Lyme IgG 45 kDa Band Lyme IgG 58 kDa Band Lyme IgG 66 kDa Band Lyme IgG 93 kDa Band Lyme IgM Ab (WB) Lyme Disease IgM Ab (Negative) Lyme IgM 23 kDa Band Lyme IgM 39 kDa Band Lyme IgM 41 kDa Band SARS-CoV-2, RNA, NAAT (NEGATIVE) 12/11/21 12/11/21 12/11/21 Range/Units 22:33 18:42 18:04 WBC (4.8-10.8) K/uL RBC (4.2-5.4) M/uL Hgb (12.0-16.0) g/dL POC Hgb 14.3 (12.0-16.0) g/dl Hct (37-47) % POC Hct 42 (37-47) % MCV (80-100) fL MCH (25-34) pg MCHC (32-36) g/dL RDW Std Deviation (36.4-46.3) fL RDW Coeff of Alex (11.5-14.5) % Plt Count (130-400) K/uL MPV (7.4-10.4) fL Immature Gran % (Auto) % Neut % (Auto) % Lymph % (Auto) % [place] % (Auto) % Eos % (Auto) % Baso % (Auto) % Neut # (Auto) (1.4-6.5) K/uL Lymph # (Auto) (1.2-3.4) K/uL [place] # (Auto) (0.11-0.59) K/uL Eos # (Auto) (0-0.5) K/uL Baso # (Auto) (0-0.2) K/uL Immature Gran # (Auto) (0.00-0.02) K/uL POC Sodium 142 (135-144) mmol/L Sodium 138 (136-145) mmol/L POC Potassium 3.0 L (3.3-5.0) mmol/L Potassium 3.8 POC Chloride 106 (101-112) mmol/L Chloride 106 (98-107) mmol/L Carbon Dioxide 25 (21-32) mmol/L POC Total CO2 22 L (24-31) mmol/L Anion Gap 7 (3-11) POC Anion Gap 18.0 (16-25) mmol/L POC BUN 24 H (7-18) mg/dl BUN 16 (6-23) mg/dl Creatinine 0.68 (0.6-1.2) mg/dl POC Creatinine 0.8 (0.6-1.3) mg/dl Est Cr Clr Drug Dosing 99.1 ml/min Est GFR ( Amer) 122.4 ml/min Est GFR (Non-Af Amer) 105.6 ml/min BUN/Creatinine Ratio 23.5 H (10-20) Glucose 116 H (70-99(Fasting)) mg/dl POC Glucose (other) 105 H (70-99) mg/dl Calcium 8.2 L (8.5-10.1) mg/dl POC Ioniz Calcium Heather 1.12 (1.12-1.32) mmol/l Magnesium 1.9 (1.7-2.4) mg/dl Total Bilirubin (0.2-1.0) mg/dl Direct Bilirubin AST ALT (7-52) U/L Alkaline Phosphatase (34-104) U/L Troponin I High Sens 6.2 (0-14) pg/ml Total Protein (6.0-8.3) gm/dl Albumin (3.4-5.0) gm/dl Lipase (11-82) U/L Urine Color Urine Appearance (Clear) Urine pH (4.5-7.5) Ur Specific [place] (1.000-1.030) Urine Protein (Negative) Urine Glucose (UA) (Negative) Urine Ketones (Negative) Urine Blood (Negative) Urine Nitrite (Negative) Urine Bilirubin (Negative) Urine Urobilinogen (Negative) Ur Leukocyte Esterase (Negative) Lyme Disease IgG Ab (Negative) Lyme IgG (Western Blot) Lyme IgG 18 kDa Band Lyme IgG 23 kDa Band Lyme IgG 28 kDa Band Lyme IgG 30 kDa Band Lyme IgG 39 kDa Band Lyme IgG 41 kDa Band Lyme IgG 45 kDa Band Lyme IgG 58 kDa Band Lyme IgG 66 kDa Band Lyme IgG 93 kDa Band Lyme IgM Ab (WB) Lyme Disease IgM Ab (Negative) Lyme IgM 23 kDa Band Lyme IgM 39 kDa Band Lyme IgM 41 kDa Band SARS-CoV-2, RNA, NAAT NEGATIVE (NEGATIVE) 12/11/21 12/11/21 12/11/21 Range/Units 16:33 16:33 16:33 WBC 15.42 H (4.8-10.8) K/uL RBC 4.90 (4.2-5.4) M/uL Hgb 15.2 (12.0-16.0) g/dL POC Hgb (12.0-16.0) g/dl Hct 43.7 (37-47) % POC Hct (37-47) % MCV 89.2 (80-100) fL MCH 31.0 (25-34) pg MCHC 34.8 (32-36) g/dL RDW Std Deviation 39.5 (36.4-46.3) fL RDW Coeff of Alex 12.3 (11.5-14.5) % Plt Count 446 H (130-400) K/uL MPV 9.0 (7.4-10.4) fL Immature Gran % (Auto) 0.2 % Neut % (Auto) 84.1 % Lymph % (Auto) 11.3 % [place] % (Auto) 3.9 % Eos % (Auto) 0.2 % Baso % (Auto) 0.3 % Neut # (Auto) 12.97 H (1.4-6.5) K/uL Lymph # (Auto) 1.74 (1.2-3.4) K/uL [place] # (Auto) 0.60 H (0.11-0.59) K/uL Eos # (Auto) 0.03 (0-0.5) K/uL Baso # (Auto) 0.05 (0-0.2) K/uL Immature Gran # (Auto) 0.03 H (0.00-0.02) K/uL POC Sodium (135-144) mmol/L Sodium (136-145) mmol/L POC Potassium (3.3-5.0) mmol/L Potassium POC Chloride (101-112) mmol/L Chloride (98-107) mmol/L Carbon Dioxide (21-32) mmol/L POC Total CO2 (24-31) mmol/L Anion Gap (3-11) POC Anion Gap (16-25) mmol/L POC BUN (7-18) mg/dl BUN (6-23) mg/dl Creatinine (0.6-1.2) mg/dl POC Creatinine (0.6-1.3) mg/dl Est Cr Clr Drug Dosing ml/min Est GFR ( Amer) ml/min Est GFR (Non-Af Amer) ml/min BUN/Creatinine Ratio (10-20) Glucose (70-99(Fasting)) mg/dl POC Glucose (other) (70-99) mg/dl Calcium (8.5-10.1) mg/dl POC Ioniz Calcium Heather (1.12-1.32) mmol/l Magnesium (1.7-2.4) mg/dl Total Bilirubin (0.2-1.0) mg/dl Direct Bilirubin AST ALT (7-52) U/L Alkaline Phosphatase (34-104) U/L Troponin I High Sens (0-14) pg/ml Total Protein (6.0-8.3) gm/dl Albumin (3.4-5.0) gm/dl Lipase (11-82) U/L Urine Color Urine Appearance (Clear) Urine pH (4.5-7.5) Ur Specific [place] (1.000-1.030) Urine Protein (Negative) Urine Glucose (UA) (Negative) Urine Ketones (Negative) Urine Blood (Negative) Urine Nitrite (Negative) Urine Bilirubin (Negative) Urine Urobilinogen (Negative) Ur Leukocyte Esterase (Negative) Lyme Disease IgG Ab Negative (Negative) Lyme IgG (Western Blot) Pending Lyme IgG 18 kDa Band Pending Lyme IgG 23 kDa Band Pending Lyme IgG 28 kDa Band Pending Lyme IgG 30 kDa Band Pending Lyme IgG 39 kDa Band Pending Lyme IgG 41 kDa Band Pending Lyme IgG 45 kDa Band Pending Lyme IgG 58 kDa Band Pending Lyme IgG 66 kDa Band Pending Lyme IgG 93 kDa Band Pending Lyme IgM Ab (WB) Pending Lyme Disease IgM Ab Equivocal A (Negative) Lyme IgM 23 kDa Band Pending Lyme IgM 39 kDa Band Pending Lyme IgM 41 kDa Band Pending SARS-CoV-2, RNA, NAAT (NEGATIVE) 12/11/21 Range/Units 16:33 WBC (4.8-10.8) K/uL RBC (4.2-5.4) M/uL Hgb (12.0-16.0) g/dL POC Hgb (12.0-16.0) g/dl Hct (37-47) % POC Hct (37-47) % MCV (80-100) fL MCH (25-34) pg MCHC (32-36) g/dL RDW Std Deviation (36.4-46.3) fL RDW Coeff of Alex (11.5-14.5) % Plt Count (130-400) K/uL MPV (7.4-10.4) fL Immature Gran % (Auto) % Neut % (Auto) % Lymph % (Auto) % [place] % (Auto) % Eos % (Auto) % Baso % (Auto) % Neut # (Auto) (1.4-6.5) K/uL Lymph # (Auto) (1.2-3.4) K/uL [place] # (Auto) (0.11-0.59) K/uL Eos # (Auto) (0-0.5) K/uL Baso # (Auto) (0-0.2) K/uL Immature Gran # (Auto) (0.00-0.02) K/uL POC Sodium (135-144) mmol/L Sodium 141 (136-145) mmol/L POC Potassium (3.3-5.0) mmol/L Potassium TNP POC Chloride (101-112) mmol/L Chloride 103 (98-107) mmol/L Carbon Dioxide 24 (21-32) mmol/L POC Total CO2 (24-31) mmol/L Anion Gap 14 H (3-11) POC Anion Gap (16-25) mmol/L POC BUN (7-18) mg/dl BUN 29 H (6-23) mg/dl Creatinine 0.92 (0.6-1.2) mg/dl POC Creatinine (0.6-1.3) mg/dl Est Cr Clr Drug Dosing 73.3 ml/min Est GFR ( Amer) 87.2 ml/min Est GFR (Non-Af Amer) 75.2 ml/min BUN/Creatinine Ratio 31.5 H (10-20) Glucose 140 H (70-99(Fasting)) mg/dl POC Glucose (other) (70-99) mg/dl Calcium 9.9 (8.5-10.1) mg/dl POC Ioniz Calcium Heather (1.12-1.32) mmol/l Magnesium (1.7-2.4) mg/dl Total Bilirubin 0.9 (0.2-1.0) mg/dl Direct Bilirubin TNP AST TNP ALT 42 (7-52) U/L Alkaline Phosphatase 73 (34-104) U/L Troponin I High Sens (0-14) pg/ml Total Protein 8.2 (6.0-8.3) gm/dl Albumin 4.9 (3.4-5.0) gm/dl Lipase 14 (11-82) U/L Urine Color Urine Appearance (Clear) Urine pH (4.5-7.5) Ur Specific [place] (1.000-1.030) Urine Protein (Negative) Urine Glucose (UA) (Negative) Urine Ketones (Negative) Urine Blood (Negative) Urine Nitrite (Negative) Urine Bilirubin (Negative) Urine Urobilinogen (Negative) Ur Leukocyte Esterase (Negative) Lyme Disease IgG Ab (Negative) Lyme IgG (Western Blot) Lyme IgG 18 kDa Band Lyme IgG 23 kDa Band Lyme IgG 28 kDa Band Lyme IgG 30 kDa Band Lyme IgG 39 kDa Band Lyme IgG 41 kDa Band Lyme IgG 45 kDa Band Lyme IgG 58 kDa Band Lyme IgG 66 kDa Band Lyme IgG 93 kDa Band Lyme IgM Ab (WB) Lyme Disease IgM Ab (Negative) Lyme IgM 23 kDa Band Lyme IgM 39 kDa Band Lyme IgM 41 kDa Band SARS-CoV-2, RNA, NAAT (NEGATIVE) Diagnostic Findings Abdomen/Pelvis CT 12/11/21 16:23 CT abd pelvis IV con only CLINICAL HISTORY: nv TECHNIQUE: Helical axial images of the abdomen and pelvis were obtained and displayed. Automated dose lowering techniques and/or adjustment according to patient size were utilized for this exam. This exam was performed with intravenous contrast. CT DOSE: 295.54 mGy.cm COMPARISON: None available at the time of this dictation. FINDINGS: Lower chest: No acute abnormality Liver: Hepatic steatosis is noted. Gallbladder and biliary tree: Patient is status post cholecystectomy. No intra- or extrahepatic biliary ductal dilation. Pancreas: Unremarkable, no focal lesions. Spleen: Unremarkable. Adrenals: There is a left adrenal nodule measuring 14 mm in diameter. Kidneys and ureters: Bilateral renal cysts noted. Bladder: Limited evaluation due to underdistention. Reproductive organs: Unremarkable. Bowel: Unremarkable appearance of the bowel. The appendix is normal. No evidence of bowel obstruction. There is a moderate hiatal hernia. Lymph nodes Retroperitoneal: Unremarkable. Mesenteric: Unremarkable. Pelvic: Unremarkable. Peritoneum: Metallic densities are seen in the left upper quadrant. Otherwise no abnormalities are seen. Vessels: Unremarkable. Abdominal wall: Unremarkable. Bones: Degenerative changes in the visualized spine. IMPRESSION: No acute abnormalities, in particular no evidence of bowel obstruction or pancreatitis. ACT 112: Negative or not required by law. Electronically signed by: Arvin Mancia M.D. 12/11/2021 7:09 PM PG Care Time/CCT Total # of Minutes Spent Total Time Spent with Patient: Total time spent is greater than 50% in coordination of care (as documented) at patient's floor/unit and/or counseling patient: Coding Level of Care Code 29615 Subseq Obs Care Lvl 3 Diagnoses Intractable nausea and vomiting R11.2 Epigastric abdominal pain R10.13 Cyclic vomiting syndrome R11.15 Hypokalemia E87.6 Leukocytosis D72.829 Adrenal nodule E27.8
[2021-12-12] MEDS: ONDANSETRON INJ 2 MG/ML 2 ML VIAL IV PRN ×2 (08:45→14:53)
[2021-12-12] MEDS ORDERED: POTASSIUM CHLORIDE CRTAB 20 MEQ TABCR PO ONE (09:00)
[2021-12-12 09:06] LABS: Basophils # (auto) 0.02 K/uL (0-0.2); Basophils % (auto) 0.3 %; Eosinophils # (auto) 0.04 K/uL (0-0.5); Eosinophils % (auto) 0.5 %; Hematocrit (blood only) 38.3 % (37-47); Hemoglobin 13.2 g/dL (12.0-16.0); Immature Granulocytes # (auto) 0.02 K/uL (0.00-0.02); Immature Granulocytes % (auto) 0.3 %; Lymphocytes # (auto) 1.82 K/uL (1.2-3.4); Lymphocytes % (auto) 23.2 %; Mean Corpuscular Hemoglobin 30.6 pg (25-34); Mean Corpuscular Hgb Conc 34.5 g/dL (32-36); Mean Corpuscular Volume 88.7 fL (80-100); Mean Platelet Volume 8.8 fL (7.4-10.4); Monocytes # (auto) 0.54 K/uL (0.11-0.59); Monocytes % (auto) 6.9 %; Neutrophils # (auto) 5.39 K/uL (1.4-6.5); Neutrophils % (auto) 68.8 %; Platelet Count 409 K/uL (130-400); RDW Coefficient of Variation 12.4 % (11.5-14.5); RDW Standard Deviation 39.7 fL (36.4-46.3); Red Blood Count 4.32 M/uL (4.2-5.4); White Blood Count 7.83 K/uL (4.8-10.8)
[2021-12-12] MEDS: FAMOTIDINE 20 MG in SYRINGE 3 ML IV SCH (09:17)
[2021-12-12] MEDS: GABAPENTIN 100 MG CAP PO SCH ×3 (09:25→21:26)
[2021-12-12] MEDS: cefTRIAXone SODIUM 2,000 MG in DEXTROSE 5% 50 ML IV SCH (09:25)
[2021-12-12 09:26] LABS: BUN Creatinine Ratio 12.7 (10-20); Calcium 8.6 mg/dl (8.5-10.1); Creatinine Clr Calc Pharmacy 108.2 ml/min; Est GFR (African American) 125.6 ml/min; Est GFR (Non-African American) 108.3 ml/min; Magnesium 2.1 mg/dl (1.7-2.4); Potassium 3.2 mmol/L (3.5-5.1)
[2021-12-12] MEDS ORDERED: POTASSIUM CHLORIDE CRTAB 20 MEQ TABCR PO STA (09:44)
[2021-12-12] MEDS: KETOROLAC TROMETHAMINE 15 MG/ML VIAL IV PRN (13:57)
[2021-12-12] MEDS ORDERED: ACETAMINOPHEN 325 MG TAB PO PRN (15:04)
[2021-12-12] MEDS ORDERED: oxyCODONE HCL IR 5 MG TAB (IMMEDIATE RELEASE) PO STA (17:22)
[2021-12-12] MEDS ORDERED: ALUMINUM/MAGNESIUM SUSP 18 ML, LIDOCAINE VISCOUS 2% SOLN 6 ML, BARCODE IDENTIFIER 1 EA PO ONE (18:08)
[2021-12-12] MEDS: NORTRIPTYLINE HCL 25 MG CAP PO SCH (21:26)
[2021-12-12] MEDS: MIRTAZAPINE TAB 15 MG TAB PO SCH (21:26)
[2021-12-13] MEDS: GABAPENTIN 100 MG CAP PO SCH ×3 (08:04→20:13)
[2021-12-13] MEDS: cefTRIAXone SODIUM 2,000 MG in DEXTROSE 5% 50 ML IV SCH (08:06)
[2021-12-13] MEDS: FAMOTIDINE 20 MG in SYRINGE 3 ML IV SCH ×2 (08:06→20:19)
[2021-12-13 08:14] LABS: Albumin Globulin Ratio 1.6 (0.9-2); Albumin Level 4.3 gm/dl (3.4-5.0); BUN Creatinine Ratio 9.6 (10-20); Bilirubin,Total 0.7 mg/dl (0.2-1.0); Calcium 8.9 mg/dl (8.5-10.1); Creatinine Clr Calc Pharmacy 93.4 ml/min; Est GFR (African American) 115.3 ml/min; Est GFR (Non-African American) 99.5 ml/min; Globulin 2.7 gm/dl (2.5-4.0); Magnesium 2.1 mg/dl (1.7-2.4); Potassium 3.5 mmol/L (3.5-5.1)
--- NOTE | 2021-12-13 08:27 | Hospitalist Progress Note ---
Date of Service December 13, 2021 Assessment & Plan (1) Intractable nausea and vomiting: Plan: 46 year old female w/ PMHx of anxiety, marijuana use, and cyclic vomiting syndrome who presents w/ intractable nausea, vomiting, and associated epigastric abd pain. CTA/P : no obstruction/pancreatitis since has had cholecystectomy, will check mrcp for microlithiasis, could be aberrant irritable bowel, somatization disorder after cholecystectomy or Sphincter of Oddi dysfunction, will consider if GI consult if no direction increased ppi and H2 on 12/13/21 Does note Left adrenal nodule is noted measuring greater density than lipid rich adenoma. If not characterized, nonemergent adrenal mass protocol can be performed. Antiemetics, pain control prn, needed parenteral pain control 12/13/21 Lipase 14 (prior 10L), ?rojas insuff Lyme IgM +, IgG negative. Never tx for Lyme in past Started Ceftriaxone IV (avoid doxy at first given GI issues) Prior dx Cyclic vomiting syndrome, and canabis use, typically f ollows with GI in [place], Dr Campos Does have MMJ card. UDS 12/08 w/ >5000 marijuana. On medications for her CVS topical capsaicin w/o relief (2) Epigastric abdominal pain: Plan: - see above, improving (3) Cyclic vomiting syndrome: Plan: - noted hx of, follows in [place] with Dr Campos (4) Hypokalemia: Plan: - replete f/u adrenal nodule (5) Leukocytosis: Plan: most likely reactive 2/2 vomiting - lower suspicion for UTI (12/08/21 urine culture growing lactobacillus; no urinary symptoms), sepsis, gastroenteritis resolved on repeat but tx for possible lyme as above (6) Adrenal nodule: Plan: Per CT abd: Left adrenal nodule is noted measuring greater density than lipid rich adenoma. If not characterized, nonemergent adrenal mass protocol can be performed. - outpatient follow up (7) Lyme disease: Plan: DVT Proph: SCDs, ambulation Advance diet as tolerated Continued inpatient stay, possible d/c in AM Admission and Anticipated Discharge Date Admission Date: December 11, 2021 Subjective Pt with post prandial epigastric and RUQ pain that is typically immediate and radiates, pt with previous cholecystectomy and unremarkable biochemical markers,plus normal initial imaging by CT Review of Systems Review of Systems: Moderat to Severe distress 8-10/10 pain no headache, no visual changes no speech or swallowing issues no chest pain, pressure or palpitations no shortness of breath, cough or wheezes upper quadrant pain provoked with eating and nausea no dysuria, hematuria or frequency no focal joint pain or swelling no back pain, CVA tenderness or radicular pain no bruising, bleeding or rashes no focal signs of weakness or numbness or altered sensation no complaints of anxiety or depression.. Physical Exam Physical Exam: The patient appeared well nourished and normally developed. Vital signs as documented. Head exam is normocephalic atraumatic Neck is without JVD, thyromegaly, or carotid bruits. Lungs are clear to auscultation, no focal loss of breath sounds Cardiac exam, Rhythm is regular.. No murmurs, rubs or gallops. Abdominal exam reveals hypoactive bowel sounds, non focal exam no rebound Extremities are nonedematous and both pedal pulses are present Neurologic exam is alert and oriented, no focal loss of strength or sensation Skin is without bruises or rashes Psychologically is without concerns for anxiety or depression. Results & Data Results & Data ([facility]) Vital Signs (Past 12 Hours) Vital Signs Temp Pulse Resp BP Pulse Ox 12/13/21 07:39 98.1 F 84 16 118/82 97 12/12/21 23:26 98.8 F 77 16 127/85 96 PG Care Time/CCT Total # of Minutes Spent Total Time Spent with Patient: Total time spent is greater than 50% in coordination of care (as documented) at patient's floor/unit and/or counseling patient: Coding Level of Care Code 65502 Subseq Hosp Care Lvl 3 Diagnoses Intractable nausea and vomiting R11.2 Epigastric abdominal pain R10.13 Cyclic vomiting syndrome R11.15 Hypokalemia E87.6 Leukocytosis D72.829 Adrenal nodule E27.8 Lyme disease A69.20
[2021-12-13] MEDS: KETOROLAC TROMETHAMINE 15 MG/ML VIAL IV PRN ×2 (09:16→15:38)
[2021-12-13] MEDS: ONDANSETRON INJ 2 MG/ML 2 ML VIAL IV PRN ×2 (09:16→15:38)
[2021-12-13] MEDS: HYDROmorphone INJ 0.5 MG/0.5 ML SYR IV PRN ×2 (10:37→16:33)
[2021-12-13] MEDS ORDERED: HYDROmorphone INJ 0.5 MG/0.5 ML SYR IV STA (11:43)
[2021-12-13] MEDS: LACTATED RINGER'S 1,000 ML IV SCH ×2 (11:53→20:10)
[2021-12-13] MEDS ORDERED: LORazepam 0.5 MG in SYRINGE 0.25 ML IV PRN (17:21)
[2021-12-13] MEDS: MIRTAZAPINE TAB 15 MG TAB PO SCH (20:13)
[2021-12-13] MEDS: NORTRIPTYLINE HCL 25 MG CAP PO SCH (20:13)
[2021-12-13] MEDS: PANTOprazole 40 MG in SYRINGE 0 ML IV SCH (20:19)
[2021-12-14] MEDS: LACTATED RINGER'S 1,000 ML IV SCH ×3 (04:04→20:32)
--- NOTE | 2021-12-14 05:45 | Electrocardiogram Report ---
Test Reason : Blood Pressure : / mmHG Vent. Rate : 066 BPM Atrial Rate : 066 BPM P-R Int : 158 ms QRS Dur : 086 ms QT Int : 430 ms P-R-T Axes : 058 028 060 degrees QTc Int : 450 ms Normal sinus rhythm with sinus arrhythmia Normal ECG No previous ECGs available Confirmed by Craig Peter ([id number]) on 12/14/2021 5:44:22 AM Referred By: REFERRED SELF Confirmed By:Craig Peter
[2021-12-14] MEDS: cefTRIAXone SODIUM 2,000 MG in DEXTROSE 5% 50 ML IV SCH (09:33)
[2021-12-14] MEDS: FAMOTIDINE 20 MG in SYRINGE 3 ML IV SCH ×2 (09:34→20:32)
[2021-12-14] MEDS: GABAPENTIN 100 MG CAP PO SCH ×3 (09:34→20:32)
[2021-12-14] MEDS: PANTOprazole 40 MG in SYRINGE 0 ML IV SCH ×2 (09:34→20:33)
--- NOTE | 2021-12-14 16:58 | Magnetic Resonance Report ---
MR MRCP HISTORY: 46 years-old Female Eval for Shpincter of Oddi dysfunction acute right upper quadrant abdom inal pain with nausea and vomiting COMPARISON: CT abdomen pelvis 12/11/2021 TECHNIQUE: MRCP without the use of IV contrast was obtained according to institutional protocol. FINDINGS: Cholecystectomy. Probable left diaphragmatic hernia. Lobular morphology of the spleen. Artifact from left upper quadrant vascular coils. Unremarkable pancreas and right adrenal gland. Indeterminate 1.5 cm left adrenal gland lesion. The liver is within normal limits. The study is mildly motion degraded. Cholecystectomy. Normal common bile duct measures 5 mm. There is no intrahepatic biliary ductal dila tion. No biliary filling defects identified to suggest choledocholithiasis. No biliary stricture or m ass identified. Normal caliber of the pancreatic duct. There is no evidence of pancreatic divisum. Unremarkable soft tissues. Cysts of the kidneys measure up to 1.2 cm within the inferior pole right k idney. Nonspecific bilateral perinephric stranding. No abdominal aortic aneurysm. Small to moderate h iatal hernia. No bowel obstruction or bowel wall thickening. Unremarkable soft tissues. IMPRESSION: 1. Status post cholecystectomy. No biliary ductal dilation or choledocholithiasis. 2. Hiatal hernia. 3. Additional findings as above. ACT 112: Negative or not required by law. The above report was generated using voice recognition software. It may contain grammatical, syntax o r spelling errors. Electronically signed by: Benny Low M.D. 12/14/2021 4:57 PM
--- NOTE | 2021-12-14 17:46 | Hospitalist Progress Note ---
Date of Service December 14, 2021 Assessment & Plan (1) Intractable nausea and vomiting: Plan: 46 year old female w/ PMHx of anxiety, marijuana use, and cyclic vomiting syndrome who presents w/ intractable nausea, vomiting, and associated epigastric abd pain. CTA/P : no obstruction/pancreatitis since has had cholecystectomy, mrcp negative, could be aberrant irritable bowel, somatization disorder after cholecystectomy or Sphincter of Oddi dysfunction, increased ppi and H2 on 12/13/21 since no defined pathology and pt is aligned with outpt gi service, if pt tolerated po intake consider outpt followup Does note Left adrenal nodule is noted measuring greater density than lipid rich adenoma. If not characterized, nonemergent adrenal mass protocol can be performed. Antiemetics, pain control prn, needed parenteral pain control Lipase 14 Lyme IgM +, IgG negative. Never tx for Lyme in past Started Ceftriaxone IV (avoid doxy at first given GI issues), consider po ceftin at discharge Prior dx Cyclic vomiting syndrome, and canabis use, typically follows with GI in [place], Dr Campos Does have MMJ card. UDS 12/08 w/ >5000 marijuana. On medications for her [facility] topical capsaicin w/o relief (2) Epigastric abdominal pain: Plan: - see above, improving, if tolerated po intake can be follow up as outpt (3) Cyclic vomiting syndrome: Plan: - noted hx of, follows in [place] with Dr Campos (4) Hypokalemia: Plan: - replete f/u adrenal nodule (5) Leukocytosis: Plan: most likely reactive 2/2 vomiting - lower suspicion for UTI (12/08/21 urine culture growing lactobacillus; no urinary symptoms), sepsis, gastroenteritis resolved on repeat but tx for possible lyme as above (6) Adrenal nodule: Plan: Per CT abd: Left adrenal nodule is noted measuring greater density than lipid rich adenoma. If not characterized, nonemergent adrenal mass protocol can be performed. - outpatient follow up (7) Lyme disease: Plan: DVT Proph: SCDs, ambulation Advance diet as tolerated Admission and Anticipated Discharge Date Admission Date: December 11, 2021 Subjective pt has improved but not yet tested out her post prandial pain has had negative studies so far and will now attempt to provoke with diet Review of Systems Review of Systems: No distress patient is n.p.o. no headache, no visual changes no speech or swallowing issues no chest pain, pressure or palpitations no shortness of breath, cough or wheezes no abdominal pain, nausea or vomiting, diarrhea or constipation no dysuria, hematuria or frequency no focal joint pain or swelling no back pain, CVA tenderness or radicular pain no bruising, bleeding or rashes no focal signs of weakness or numbness or altered sensation no complaints of anxiety or depression.. Physical Exam Physical Exam: The patient appeared well nourished and normally developed. Vital signs as documented. Head exam is normocephalic atraumatic Neck is without JVD, thyromegaly, or carotid bruits. Lungs are clear to auscultation, no focal loss of breath sounds Cardiac exam, Rhythm is regular.. No murmurs, rubs or gallops. Abdominal exam reveals normal bowel sounds, soft non tender, no masses Extremities are nonedematous and both pedal pulses are present Neurologic exam is alert and oriented, no focal loss of strength or sensation Skin is without bruises or rashes Psychologically is without concerns for anxiety or depression.. Results & Data Results & Data ([facility]) Vital Signs (Past 12 Hours) Vital Signs Temp Pulse Resp BP Pulse Ox 12/14/21 14:48 98.4 F 84 16 120/82 99 12/14/21 07:45 98.2 F 89 16 111/77 98 PG Care Time/CCT Total # of Minutes Spent Total Time Spent with Patient: Total time spent is greater than 50% in coordination of care (as documented) at patient's floor/unit and/or counseling patient: Coding Level of Care Code 10684 Subseq Obs Care Lvl 2 Diagnoses Intractable nausea and vomiting R11.2 Epigastric abdominal pain R10.13 Cyclic vomiting syndrome R11.15 Hypokalemia E87.6 Leukocytosis D72.829 Adrenal nodule E27.8 Lyme disease A69.20
[2021-12-14] MEDS: NORTRIPTYLINE HCL 25 MG CAP PO SCH (20:32)
[2021-12-14] MEDS: MIRTAZAPINE TAB 15 MG TAB PO SCH (20:32)
[2021-12-15] MEDS: LACTATED RINGER'S 1,000 ML IV SCH (04:42)
[2021-12-15] MEDS: cefTRIAXone SODIUM 2,000 MG in DEXTROSE 5% 50 ML IV SCH (09:46)
[2021-12-15] MEDS: FAMOTIDINE 20 MG in SYRINGE 3 ML IV SCH (09:47)
[2021-12-15] MEDS: PANTOprazole 40 MG in SYRINGE 0 ML IV SCH (09:47)
[2021-12-15] MEDS: GABAPENTIN 100 MG CAP PO SCH (09:47)
--- NOTE | 2021-12-15 11:45 | Discharge Summary ---
Date of Service December 15, 2021 Admission HPI Per Admitting Provider 46 year old female w/ PMHx of anxiety, marijuana use, and cyclic vomiting syndrome who presents w/ intractable nausea, vomiting, and associated epigastric abd pain since 12/07/21. She describes 15 hours of multiple episodes of N/V during onset. She was seen at [facility] [place] [facility] on 12/08/21 and was sent home. She returns today for continued symptoms. Her main complaint today is nausea, vomiting (foodstuffs) and 10/10 epigastric abd pain. Last emesis was after going to CT scan. She has not taken her home PO meds in several days. Currently, aside from nausea and abd pain, she does have anxiety. Denies fever/chills, chest pain, SOB, urinary symptoms. Patient states that she was diagnosed w/ cyclic vomiting syndrome by an outside provider after trialing 1 year off of marijuana w/ continued symptoms. She has been on nortriptyline 100mg qhs for the past year and states this helped control her vomiting symptoms greatly. Patient follows a manager nicu in [place] for HTN. She states she had workup in past for chest pain radiating to arms, but was not thought to be ischemia related and has not had stress test. ED course: IV morphine, Reglan, Benadrl, toradol, NSS. Considered home dispo, but trialed IV tylenol, home dose nortriptyline, topical capsaicin, Voltaren gel, GI cocktail w/o relief on re-exam. Principal Diagnosis Lyme disease Intractable nausea/vomiting,? Cyclic vomiting exacerbation Discharge Exam General: A&Ox3. NAD. Cooperative. HEENT: Atraumatic, normocephalic. Vision and hearing grossly intact Pulm: CTAB A&P. -wheezes, -rales, -rhonchi. Symmetrical chest rise. No increase in work of breathing. No respiratory distress. Cardiac: RRR, -mrg. Radial pulses intact and symmetrical. Abdominal: Nontender, nondistended, soft. BS present. Discharge Data Allergies Allergy/AdvReac Type Severity Reaction Status Date / Time azithromycin [From Zithromax] Allergy Intermediate Rash Verified 12/08/21 01:09 divalproex sodium Allergy Intermediate Rash Verified 12/08/21 01:09 [From Depakote] erythromycin base Allergy Intermediate Rash Verified 12/08/21 01:09 Iodinated Contrast Media Allergy Intermediate MRI Verified 12/12/21 04:06 CONTRAST (SNEEZING,RASH) lamotrigine [From Lamictal] Allergy Intermediate Rash Verified 12/08/21 01:09 Consultations 12/11/21 19:17 ED Decision to Admit Stat Ordered Studies 12/11/21 16:23 CT abd pelvis IV con only Stat 12/14/21 00:10 MR MRCP Routine Hospital Course (1) Intractable nausea and vomitin46 year old female w/ PMHx of anxiety, marijuana use, and cyclic vomiting syndrome who presents w/ intractable nausea, vomiting, and associated epigastric abd pain. To do as outpatient: 1. Continue cefuroxime 500 mg by mouth twice daily for 14 days. Lyme positive IgM, confirmation serology pending at discharge. Doxycycline avoided due to history of stomach upset/gastritis 2. Follow-up left adrenal nodule imaging as outpatient. Intractable nausea/vomiting Improved by day of discharge with conservative care CTA/P: No obstruction/pancreatitis. Status postcholecystectomy. MRCP negative.? Irritable bowel versus matization disorder versus sphincter of Oddi dysfunction PPI/H2 continued, patient clinically improved History of cyclical vomiting syndrome as noted below ? Exacerbation in the setting of Lyme disease - No pain/nausea/vomiting at time of d/c Lyme disease IgM positive, IgG negative No history of prior Lyme treatment Received Rocephin IV empirically Converted to cefuroxime on discharge, Doxy avoided due to GI issues Cyclic vomiting syndrome, cannabis use and capsaicin therapy Patient will keep follow-up with GI in [place] as outpatient Stable at time of discharge (2) Epigastric abdominal pain: - see above, improving, elevating p.o. at time of discharge (3) Cyclic vomiting syndrome: - noted hx of, follows in [place] with Dr Campos (4) Hypokalemia: - Repleted (5) Leukocytosis: most likely reactive 2/2 vomiting - lower suspicion for UTI (12/08/21 urine culture growing lactobacillus; no urinary symptoms), sepsis, gastroenteritis - resolved on repeat but tx for possible lyme as above will cover UTI as well (6) Adrenal nodule: - CT: There is a left adrenal nodule measuring 14 mm in diameter. - MRCP: Indeterminate 1.5 cm left adrenal gland lesion. - Indeterminate 1-2cm adrenal nodule, may have outpt renal protocol imaging and repeat at 1 year if no concerning features. (7) Lyme disease: as noted DVT Proph: SCDs, ambulation Advance diet as tolerated Total Time Total Time Spent Total Time Spent (In Minutes): Time spend day of discharge 35 minutes including direct patient care, documentation, review of labs and images, and coordination of care. Discharge Plan Discharge Items Patient Disposition: Home - Self-Care Reason For Visit: INTRACTABLE NAUSEA,VOMITING AND ABDOMINAL PAIN Discharge Diagnosis: Nausea/vomiting Lyme disease Activity: Resume your previous activity Non-emergency contact: Primary Care Provider and Sales Systems Engineer Call non-emergency contact if: you have any medication questions and your symptoms worsen Follow-up/Referrals: Shyam Rdz [Primary Care Provider] - Natanaeltl Attending Provider Instructions: You were seen in the hospital for intractable nausea and vomiting. You were found to be positive on a blood test for Lyme, and were treated with antibiotics. Your symptoms gradually improved during admission. You are being discharged to follow-up with your PCP, have had antibiotics prescribed as below, and were noted during admission to have a incidental adrenal nodule which will require outpatient follow-up as noted below. Your Lyme screening test was positive (IgM positive, IgG negative). You were treated with Rocephin during admission, this is been switched to cefuroxime at time of discharge. Please take cefuroxime 500 mg by mouth twice daily for 13 days to complete 2 weeks of treatment. You had severe nausea/vomiting during admission which gradually improved. You have been placed on antiacid medications. Please take Protonix 40 mg by mouth twice daily for 2 weeks, and then discuss stopping/tapering this at your outpatient follow-up visit. You have also been prescribed famotidine 20 mg by mouth twice daily for up to 6 weeks. A follow-up appointment is being scheduled for you with your primary care physician. You should be seen within 1 to 2 weeks for reevaluation. Please follow-up on the final confirmatory testing of your Lyme panel at that appointment You are noted to have a adrenal nodule during admission. Most of these are benign, but you should have follow-up imaging as an outpatient. Please discuss this with your primary care provider at your follow-up appointment If you develop any new or worsening symptoms including fever, chills, sweats, chest pain, chest pressure, difficulty breathing, uncontrolled nausea/vomiting, rash, wheezing, passing out or nearly passing out, bleeding, black/bloody bowel movements, or other new or concerning symptoms please call your primary care physician, or call 911 for re-evaluation in the emergency department if you are very concerned. Pending Studies at Discharge: No Stand-Alone Forms: My [facility], Smoking Cessation Medications and DC Order Prescriptions: New pantoprazole 40 mg tablet,delayed release (DR/EC) 40 mg PO BID 14 Days Qty: 28 RF: 0 famotidine 20 mg tablet 20 mg PO BID 42 Days Qty: 84 RF: 0 cefuroxime axetil 500 mg tablet 500 mg PO BID 13 Days Qty: 26 RF: 0 Continued metoclopramide HCl 10 mg tablet 10 mg PO ACHS RF: 0 promethazine [Phenadoz] 25 mg Suppository 25 mg IA Q6H PRN (Reason: Nausea) RF: 0 rizatriptan [Maxalt] 10 mg Tablet 10 mg PO DIRECTED PRN (Reason: Migraine Headache) RF: 0 mirtazapine [Remeron] 30 mg Tablet 30 mg PO HS RF: 0 promethazine 25 mg Tablet 25 mg PO Q6H PRN (Reason: Nausea) RF: 0 ergocalciferol (vitamin D2) [Vitamin D2] 1,250 mcg (50,000 unit) Capsule 1,250 mcg PO WK RF: 0 nortriptyline 50 mg Capsule 100 mg PO HS RF: 0 gabapentin 100 mg Tablet 100 mg PO TID RF: 0 promethazine 25 mg suppository 25 mg IA Q6H PRN (Reason: sedation) Qty: 12 RF: 0 ondansetron 4 mg tablet,disintegrating 4 mg PO Q6H PRN (Reason: nausea and vomiting) Qty: 12 RF: 0 Discharge Orders: Discharge Order (Routine); Ordered 12/15/21 Ordered By: Igor Lockwood Admission Data Admit Date/Time: 12/11/21 21:55 Attending Provider: Igor Lockwood Admit Provider: Nehemiah Wilson Primary Care Provider: Shyam Rdz Other Providers: Edilberto Joseph Coding Level of Care Code D/C DAY MANAGEMENT >30 MINS Diagnoses Intractable nausea and vomiting R11.2 Epigastric abdominal pain R10.13 Cyclic vomiting syndrome R11.15 Hypokalemia E87.6 Leukocytosis D72.829 Adrenal nodule E27.8 Lyme disease A69.20
[2021-12-16 16:11] LABS: 18KDIGG Band NON-REACTIVE; 23KDIGG Band NON-REACTIVE; 23KDIGM Band REACTIVE; 28KDIGG Band NON-REACTIVE; 30KDIGG Band NON-REACTIVE; 39KDIGG Band NON-REACTIVE; 39KDIGM Band NON-REACTIVE; 41KDIGG Band NON-REACTIVE; 41KDIGM Band NON-REACTIVE; 45KDIGG Band NON-REACTIVE; 58KDIGG Band NON-REACTIVE; 66KDIGG Band NON-REACTIVE; 93KDIGG Band NON-REACTIVE; Lyme Antibodies, WB IgG NEGATIVE (NEGATIVE); Lyme Antibodies, WB IgM NEGATIVE (NEGATIVE)
== END 2021-12-15 13:03 | disposition home or self-care (01) ==
LOC: 3N 16:10 → ED 16:10 → SUATTDRO 21:55 → 3N 22:39

== ENCOUNTER 2024-11-28 03:40 | Observation (INO) ==
[2024-11-28] MEDS: KETOROLAC TROMETHAMINE 15 MG/ML VIAL IV STA (04:03)
[2024-11-28] MEDS: ONDANSETRON INJ 2 MG/ML 2 ML VIAL IV STA ×2 (04:03→06:10)
[2024-11-28] MEDS: SODIUM CHLORIDE 0.9% 1,000 ML IV STA (04:03)
[2024-11-28 04:15] LABS: Basophils # (auto) 0.06 K/uL (0.00-0.20); Basophils % (auto) 0.6 %; Eosinophils # (auto) 0.03 K/uL (0.00-0.50); Eosinophils % (auto) 0.3 %; Hematocrit (blood only) 41.2 % (37.0-47.0); Immature Granulocytes # (auto) 0.03 K/uL (0.01-0.20); Immature Granulocytes % (auto) 0.3 %; Lymphocytes # (auto) 1.95 K/uL (1.20-3.40); Lymphocytes % (auto) 18.3 %; Mean Corpuscular Hemoglobin 30.8 pg (25.0-34.0); Mean Corpuscular Volume 90.5 fL (80.0-100.0); Mean Platelet Volume 8.4 fL (9.4-12.4); Monocytes # (auto) 0.43 K/uL (0.11-0.59); Neutrophils # (auto) 8.15 K/uL (1.40-6.50); Neutrophils % (auto) 76.5 %; Platelet Count 358 K/uL (130-400); RDW Coefficient of Variation 12.2 % (11.5-14.5); RDW Standard Deviation 40.6 fL (36.4-46.3); Red Blood Count 4.55 M/uL (4.20-5.40); White Blood Count 10.65 K/ul (4.8-10.8)
[2024-11-28 04:20] LABS: iSTAT Creatinine 1.1 mg/dl (0.6-1.3); iSTAT Hemoglobin 14.6 g/dl (12.0-16.0); iSTAT Ionized Calcium 1.19 mmol/l (1.12-1.32); iSTAT Potassium 4.1 mmol/L (3.3-5.0)
[2024-11-28] MEDS: OPTIRAY 320 100ml IV ONE (04:24)
[2024-11-28 04:32] LABS: Albumin Globulin Ratio 1.5 (0.9-2); Albumin Level 4.5 gm/dl (3.4-5.0); BUN Creatinine Ratio 17.2 (10-20); Bilirubin,Total 0.3 mg/dl (0.2-1.0); Calcium 9.6 mg/dl (8.6-10.3); Creatinine Clr Calc Pharmacy 56.8 ml/min; Globulin 3.1 gm/dl (2.5-4.0); Potassium 4.1 mmol/L (3.5-5.1); Total Protein 7.6 gm/dl (6.0-8.3)
[2024-11-28 04:35] LABS: Appearance Urine Cloudy (Clear); Bacteria Urine Automated 4+ (None Seen); Bilirubin Urine Negative (Negative); Blood Urine 3+ (Negative); Color Urine Dark Yellow; Glucose Urine UA Negative (Negative); Ketones Urine 1+ (Negative); Leukocyte Esterase Urine Negative (Negative); Nitrite Urine Negative (Negative); Protein Urine 1+ (Negative); RBC Urine Automated >20 /hpf (0-2); Specific Gravity Urine 1.033 (1.000-1.030); Urobilinogen Urine Negative (Negative); WBC Urine Automated 0-5 /hpf (0-5); pH Urine 5.5 (4.5-7.5)
--- NOTE | 2024-11-28 04:41 | Emergency Department Note ---
Impression & Plan Calculus of ureterovesical junction (UVJ), UTI (urinary tract infection), Right flank pain, Nausea & vomiting ED Provider Note CHIEF COMPLAINT: Abdominal pain HISTORY OF PRESENT ILLNESS: This 49-year-old female patient presents to the emergency department via private vehicle for evaluation of abdominal pain. The patient states the pain came on suddenly approximately 4 hours prior to arrival. She states that she believes it to be her appendix. She states she does have a history of cyclic vomiting syndrome as well as cholecystectomy. She states this does not feel consistent with her cyclic vomiting syndrome. The patient has had associated nausea and vomiting. She has not had diarrhea. She does report a decreased appetite yesterday. No fever. She has had chills. She took Ativan and promethazine suppository without relief of her symptoms. Patient denies history of similar symptoms. Unknown last menstrual period. The patient states she is on continuous control. She has had some urinary frequency and hesitancy since the onset of her symptoms. She denies any burning with urination. The pain does radiate around to the right side of her back. History provided by: Patient REVIEW OF SYSTEMS: A 10 system review of systems was performed with positives and pertinent negatives listed in the history of present illness. All other systems were reviewed and are negative. ALLERGIES: Lamictal, MRI contrast, erythromycin, Depakote, Zithromax PHYSICAL EXAM: VITALS: Vitals are noted on the nurse's note and reviewed by myself. GENERAL: This is a 49-year-old female, in no acute distress, nondiaphoretic, well-developed well-nourished. SKIN: The skin was without rashes, erythema, edema, or bruising. There is no tenting of the skin. Capillary refill less than 2 seconds. HEAD: Normocephalic atraumatic. EYES: Conjunctivae without injection, sclerae without icterus. MOUTH: Mucous membranes moist. NECK: Supple without nuchal rigidity. No lymphadenopathy. Cervical spine is nontender. No JVD. HEART: Regular rate and rhythm without murmurs gallops or rubs. LUNGS: Clear to auscultation bilaterally without wheezes, rales or rhonchi. No retractions or accessory muscle use. ABDOMEN: Positive bowel sounds x 4. Epigastric tenderness to palpation. The abdomen is otherwise soft, nontender, without masses or organomegaly. Arroyo sign negative. No guarding or rebound tenderness. MUSCULOSKELETAL: No muscle atrophy, erythema, or edema noted. Full range of motion without joint tenderness in all extremities. No tenderness to palpation. Normal gait. Strength 5/5 throughout. NEURO: Patient was alert and oriented to person place and time. No focal neurological deficits. An order was placed for continuous phototypesetting equipment monitor. The monitor showed a normal sinus rhythm at a ventricular rate of 63 bpm, per my interpretation. Imaging as interpreted by myself and the radiologist revealed 2 mm right UVJ stone with hydronephrosis, with radiologist interpretation as above. I agree with the radiologist's findings as based upon my independent interpretation. EMERGENCY DEPARTMENT COURSE: The patient was evaluated as above. The patient presents with sudden onset of right sided abdominal pain radiating to the right side of the back. Patient denies history of similar symptoms. She is very concerned that the pain is related to appendicitis. IV access was obtained, labs were drawn. Patient was hydrated with IV fluids. She was medicated with IV Toradol and Zofran. CT imaging was completed and reviewed by myself radiologist as noted. Patient is continuing to complain of severe pain. She was medicated with IV morphine. Labs reviewed. Per my interpretation, no leukocytosis or anemia. No thrombocytopenia. Renal, hepatic function and electrolytes without significant abnormality. Lipase 23. hCG negative. Urinalysis positive for 3+ blood, epithelial cells, and 4+ bacteria. Patient was reassessed. She was updated on the findings of the workup completed here in the emergency department. Given the concern for urinary tract infection in the setting of a right UVJ stone, I did recommend inpatient care. The patient was agreeable. Patient was medicated with IV Rocephin. She was medicated with IV acetaminophen and additional Zofran as she is continued to complain of nausea. I discussed the case with the [facility] hospitalist. Please see hospitalist dictation regarding ongoing management and care of this patient. Case was discussed with the attending physician. This visit is during a period of high volume and high acuity in the emergency department. I attest that I have personally reviewed the patient medication list. I attest that I have reviewed the patient's blood pressure and it was found to be elevated. Suspect this to be situational in nature. GCS: 15 In the evaluation and treatment of this patient the following differential diagnoses were entertained: appendicitis, diverticulitis, obstruction, inflammatory bowel disease, renal colic, PUD, biliary pathology, pancreatitis, mesenteric ischemia, aortic pathology, infections, genitourinary, UTI, perforated viscus, , ectopic , ovarian torsion, as well as others were entertained. The chart was completed utilizing [employer] Speech voice recognition software. Grammatical errors, random word insertions, pronoun errors, and incomplete sentences are an occasional consequence of this system due to software limitations, ambient noise, and hardware issues. Any formal questions or concerns about the content, text, or information contained within the body of this dictation should be directly addressed to the provider for clarification. Past Med/Surg History Problem List Nausea & vomiting (Acute) Right flank pain (Acute) UTI (urinary tract infection) (Acute) Calculus of ureterovesical junction (UVJ) (Acute) Adrenal nodule Leukocytosis Hypokalemia Epigastric abdominal pain Intractable nausea and vomiting (Acute) History of section Cyclic vomiting syndrome (Acute) Medical History Lyme disease Surgical History History of cholecystectomy Family History Other Family history non-contributory Social History Smoking Status: Never smoker Tobacco Type: E-cigarettes / Vaping Hx Alcohol Use: No Hx Substance Use: Yes Last Used Substance: Days (ago) Preferred Language: [place]i Communication Ability: Effective Software Programmer Required: No Beliefs That Will Affect Care: Baptism Baptism Beliefs: HINDUISM Current Living Situation: Spouse Feels Safe at Home: Yes Assistive Devices: None Allergies Allergies Allergy/AdvReac Type Severity Reaction Status Date / Time azithromycin [From Zithromax] Allergy Intermediate Rash Verified 12/08/21 01:09 divalproex sodium Allergy Intermediate Rash Verified 12/08/21 01:09 [From Depakote] erythromycin base Allergy Intermediate Rash Verified 12/08/21 01:09 Iodinated Contrast Media Allergy Intermediate MRI Verified 12/12/21 04:06 CONTRAST (SNEEZING,RASH) lamotrigine [From Lamictal] Allergy Intermediate Rash Verified 12/08/21 01:09 Home Meds Home Medications Medication Instructions Recorded Confirmed ergocalciferol (vitamin D2) 1,250 1,250 mcg PO WK 12/08/21 12/11/21 mcg (50,000 unit) capsule (Vitamin D2) gabapentin 100 mg tablet 100 mg PO TID 12/08/21 12/11/21 mirtazapine 30 mg tablet (Remeron) 30 mg PO HS 12/08/21 12/11/21 nortriptyline 50 mg capsule 100 mg PO HS 12/08/21 12/11/21 promethazine 25 mg rectal 25 mg W[place] Q6H PRN Nausea 12/08/21 12/11/21 suppository promethazine 25 mg tablet 25 mg PO Q6H PRN Nausea 12/08/21 12/11/21 rizatriptan 10 mg tablet (Maxalt) 10 mg PO DIRECTED PRN Migraine 12/08/21 12/11/21 Headache metoclopramide HCl 10 mg tablet 10 mg PO ACHS 12/11/21 12/11/21 Previous Rx's Medication Instructions Recorded ondansetron 4 mg disintegrating 4 mg PO Q6H PRN nausea and 12/08/21 tablet vomiting #12 tabs promethazine 25 mg rectal 25 mg WY Q6H PRN sedation #12 ea 12/08/21 suppository Results & Data (ED) Vital Signs Vital Signs - 24 hr 11/28/24 03:41 11/28/24 04:14 11/28/24 04:30 Temperature 36.4 C L Temperature Source Oral Pulse Rate 74 63 81 Pulse Rate from SpO2 Sensor Respiratory Rate 18 18 Respiratory Effort / Characteristics Non-Labored Spontaneous Respiratory Depth Normal Respiratory Pattern Regular Blood Pressure 164/97 H 173/97 H Blood Pressure Mean 119 122 Pulse Oximetry 97 100 Oxygen Delivery Method Room Air Room Air Sepsis Recent Fever Within 48 Hours No Sepsis New/Unexplained Change in Mental Status No Sepsis Action Taken by Nursing No Action Required 11/28/24 05:27 11/28/24 06:15 Temperature Temperature Source Pulse Rate 70 73 Pulse Rate from SpO2 Sensor 70 Respiratory Rate 23 20 Respiratory Effort / Characteristics Respiratory Depth Respiratory Pattern Blood Pressure 165/89 H 157/96 H Blood Pressure Mean 114 125 Pulse Oximetry 96 97 Oxygen Delivery Method Room Air Room Air Sepsis Recent Fever Within 48 Hours Sepsis New/Unexplained Change in Mental Status Sepsis Action Taken by Nursing Laboratory Data 11/28/24 04:00 11/28/24 04:00 Lab Results 11/28/24 11/28/24 11/28/24 Range/Units 03:55 04:00 04:07 WBC 10.65 (4.8-10.8) K/ul RBC 4.55 (4.20-5.40) M/uL Hgb 14.0 (12.0-16.0) g/dl POC Hgb 14.6 (12.0-16.0) g/dl Hct 41.2 (37.0-47.0) % POC Hct 43 (37-47) % MCV 90.5 (80.0-100.0) fL MCH 30.8 (25.0-34.0) pg MCHC 34.0 (32.0-36.0) g/dL RDW Std Deviation 40.6 (36.4-46.3) fL RDW Coeff of Alex 12.2 (11.5-14.5) % Plt Count 358 (130-400) K/uL MPV 8.4 L (9.4-12.4) fL Immature Gran % (Auto) 0.3 % Neut % (Auto) 76.5 % Lymph % (Auto) 18.3 % Clay % (Auto) 4.0 % Eos % (Auto) 0.3 % Baso % (Auto) 0.6 % Neut # (Auto) 8.15 H (1.40-6.50) K/uL Lymph # (Auto) 1.95 (1.20-3.40) K/uL Clay # (Auto) 0.43 (0.11-0.59) K/uL Eos # (Auto) 0.03 (0.00-0.50) K/uL Baso # (Auto) 0.06 (0.00-0.20) K/uL Immature Gran # (Auto) 0.03 (0.01-0.20) K/uL POC Sodium 142 (135-144) mmol/L Sodium 141 (136-145) mmol/L POC Potassium 4.1 (3.3-5.0) mmol/L Potassium 4.1 (3.5-5.1) mmol/L POC Chloride 111 (101-112) mmol/L Chloride 109 H (98-107) mmol/L Carbon Dioxide 20 L (21-32) mmol/L POC Total CO2 19 L (24-31) mmol/L Anion Gap 12 H (3-11) POC Anion Gap 17.0 (16-25) mmol/L POC BUN 19 H (7-18) mg/dl BUN 20 (6-23) mg/dl Creatinine 1.16 (0.6-1.2) mg/dl POC Creatinine 1.1 (0.6-1.3) mg/dl Est Cr Clr Drug Dosing 56.8 ml/min eGFR 58.16 BUN/Creatinine Ratio 17.2 (10-20) Glucose 168 H (70-99(Fasting)) mg/dl POC Glucose (other) 173 H (70-99) mg/dl Calcium 9.6 (8.6-10.3) mg/dl POC Ioniz Calcium Heather 1.19 (1.12-1.32) mmol/l Total Bilirubin 0.3 (0.2-1.0) mg/dl AST 29 (13-39) U/L ALT 45 (7-52) U/L Alkaline Phosphatase 52 (34-104) U/L Total Protein 7.6 (6.0-8.3) gm/dl Albumin 4.5 (3.4-5.0) gm/dl Globulin 3.1 (2.5-4.0) gm/dl Albumin/Globulin Ratio 1.5 (0.9-2) Lipase 23 (11-82) U/L HCG, Qual Negative (Negative) Urine Color Dark Yellow Urine Appearance Cloudy A (Clear) Urine pH 5.5 (4.5-7.5) Ur Specific [place] 1.033 H (1.000-1.030) Urine Protein 1+ H (Negative) Urine Glucose (UA) Negative (Negative) Urine Ketones 1+ H (Negative) Urine Blood 3+ H (Negative) Urine Nitrite Negative (Negative) Urine Bilirubin Negative (Negative) Urine Urobilinogen Negative (Negative) Ur Leukocyte Esterase Negative (Negative) Urine WBC (Auto) 0-5 (0-5) /hpf Urine RBC (Auto) >20 H (0-2) /hpf U Hyaline Cast (Auto) 3-5 H (0-2) /lpf U Epithel Cells (Auto) 11-20 H (0-2) /hpf Urine Bacteria (Auto) 4+ H (None Seen) Urine Comment Administered Medications Discontinued Medications Sodium Chloride (Nss) 1,000 mls @ 999 mls/hr IV .Q1H1M STA Stop: 11/28/24 04:49 Last Infusion: 11/28/24 05:08 Dose: Infused Documented By: Admin: 11/28/24 04:03 Dose: 999 mls/hr Documented By: YANA Acetaminophen (Ofirmev) 1,000 mg in 100 mls @ 400 mls/hr IV NOW STA Stop: 11/28/24 06:07 Last Admin: 11/28/24 06:13 Dose: 400 mls/hr Documented By: YANA Ceftriaxone Sodium (Rocephin) 2,000 mg in 50 mls @ 100 mls/hr IV NOW STA Stop: 11/28/24 06:22 Last Admin: 11/28/24 06:11 Dose: 100 mls/hr Documented By: YANA Ioversol (Optiray 320 100ml) 100 ml IV ONCE ONE Stop: 11/28/24 04:23 Last Admin: 11/28/24 04:24 Dose: 93 ml Documented By: RUT Ketorolac Tromethamine (Ketorolac Tromethamine 15 Mg/Ml Vial) 10 mg IV NOW STA Stop: 11/28/24 03:50 Last Admin: 11/28/24 04:03 Dose: 10 mg Documented By: YAAN Morphine Sulfate (Morphine Sulfate 4 Mg/Ml 1 Ml Carp\Vial) 4 mg IV NOW STA Stop: 11/28/24 04:28 Last Admin: 11/28/24 05:06 Dose: 4 mg Documented By: YANA Ondansetron HCl (Ondansetron Inj 2 Mg/Ml 2 Ml Vial) 4 mg IV NOW STA Stop: 11/28/24 03:50 Last Admin: 11/28/24 04:03 Dose: 4 mg Documented By: YANA Ondansetron HCl (Ondansetron Inj 2 Mg/Ml 2 Ml Vial) 4 mg IV NOW STA Stop: 11/28/24 05:54 Last Admin: 11/28/24 06:10 Dose: 4 mg Documented By: YANA Tamsulosin HCl (Tamsulosin Hcl 0.4 Mg Cap) 0.4 mg PO NOW ONE Stop: 11/28/24 05:55 Last Admin: 11/28/24 06:14 Dose: 0.4 mg Documented By: [facility] Imaging Data Radiologist's Impression: Abdomen/Pelvis CT 11/28/24 03:50 EXAM: CT abd pelvis IV con only CLINICAL HISTORY: RLQ pain TECHNIQUE: Contiguous axial images were obtained from the level of the diaphragm to the pubic symphysis with intravenous contrast. Coronal and sagittal reconstructions were likewise performed and indicated to increase the sensitivity for detecting clinically relevant pathology. If IV contrast material had not been administered, the likelihood of detecting abnormalities relevant to the patient's condition would have been substantially decreased. CT scan was performed according to ALARA (as low as reasonable achievable). COMPARISON: 12/11/2021 17:26:33 MANAGER WEALTH MANAGEMENT FINDINGS: The visualized lung bases are clear. Sliding hiatus hernia noted. The liver is normal in size and attenuation. No focal liver lesions are seen. There is no intra or extrahepatic biliary ductal dilatation. Hepatic vasculature is patent. The gallbladder is removed. The spleen, pancreas, and adrenal glands are unremarkable. The kidneys are normal in size and attenuation. Tiny concretion noted involving left renal lower calyx. 3 non-obstructing calculi of average size 2-3 mm are noted in the lower pole calyx of right kidney. Right kidney shows hydronephrosis and hydroureter up to an obstructing calculus of size 2mm is noted in right vesicoureteric junction. The bladder is normal in contour. Pelvic viscera are unremarkable. No focal or diffuse bowel wall thickening or evidence of bowel obstruction is identified. Abdominal and pelvic vasculature is patent. No adenopathy or fluid collections are seen. No aggressive appearing osseous lesions are identified. Multiple small uncomplicated colonic diverticulosis. Rest unchanged. IMPRESSION: 1. Tiny concretion noted involving left renal lower calyx.-stable. 2. Right kidney shows hydronephrosis and hydroureter up to an obstructing calculus of size 2mm is noted in right vesicoureteric junction.-new finding. 3. 3 non-obstructing calculi of average size 2-3 mm are noted in the lower pole calyx of right kidney. 4. Multiple small uncomplicated colonic diverticulosis.-stable. 5. Hiatus hernia is noted , this has increased in size compared to the prior. Electronically signed by Frank Munguia 11-28-2024 05:13 AM Discharge Plan Visit Data Chief Complaint: Abdominal Pain Stated Complaint: ABD PAIN ED Provider: Fernando Quintana ED Midlevel Provider: Edith Rodriguez Discharge Problem: Calculus of ureterovesical junction (UVJ), UTI (urinary tract infection), Right flank pain, Nausea & vomiting Patient Disposition: Admitted As Inpatient Condition: Good Forms Stand Alone Forms: [facility] [employer] Prescriptions Prescriptions: No Action metoclopramide HCl 10 mg tablet 10 mg PO ACHS promethazine 25 mg Suppository 25 mg WY Q6H PRN (Reason: Nausea) rizatriptan [Maxalt] 10 mg Tablet 10 mg PO DIRECTED PRN (Reason: Migraine Headache) mirtazapine [Remeron] 30 mg Tablet 30 mg PO HS promethazine 25 mg Tablet 25 mg PO Q6H PRN (Reason: Nausea) ergocalciferol (vitamin D2) [Vitamin D2] 1,250 mcg (50,000 unit) Capsule 1,250 mcg PO WK nortriptyline 50 mg Capsule 100 mg PO HS gabapentin 100 mg Tablet 100 mg PO TID promethazine 25 mg suppository 25 mg WY Q6H PRN (Reason: sedation) Qty: 12 0RF ondansetron 4 mg tablet,disintegrating 4 mg PO Q6H PRN (Reason: nausea and vomiting) Qty: 12 0RF Referrals Referrals: Shyam Rdz [Primary Care Provider] -
[2024-11-28 05:03] LABS: Pregnancy Test, Serum Negative (Negative)
[2024-11-28] MEDS: MoRPHine SULFATE 4 MG/ML 1 ML CARP\\VIAL IV STA (05:06)
--- NOTE | 2024-11-28 05:14 | CT Scan Report ---
EXAM: CT abd pelvis IV con only CLINICAL HISTORY: RLQ pain TECHNIQUE: Contiguous axial images were obtained from the level of the diaphragm to the pubic symphysis with intravenous contrast. Coronal and sagittal reconstructions were likewise performed and indicated to increase the sensitivity for detecting clinically relevant pathology. If IV contrast material had not been administered, the likelihood of detecting abnormalities relevant to the patient's condition would have been substantially decreased. CT scan was performed according to ALARA (as low as reasonable achievable). COMPARISON: 12/11/2021 17:26:33 CORPORATE ADMINISTRATIVE ASSISTANT FINDINGS: The visualized lung bases are clear. Sliding hiatus hernia noted. The liver is normal in size and attenuation. No focal liver lesions are seen. There is no intra or extrahepatic biliary ductal dilatation. Hepatic vasculature is patent. The gallbladder is removed. The spleen, pancreas, and adrenal glands are unremarkable. The kidneys are normal in size and attenuation. Tiny concretion noted involving left renal lower calyx. 3 non-obstructing calculi of average size 2-3 mm are noted in the lower pole calyx of right kidney. Right kidney shows hydronephrosis and hydroureter up to an obstructing calculus of size 2mm is noted in right vesicoureteric junction. The bladder is normal in contour. Pelvic viscera are unremarkable. No focal or diffuse bowel wall thickening or evidence of bowel obstruction is identified. Abdominal and pelvic vasculature is patent. No adenopathy or fluid collections are seen. No aggressive appearing osseous lesions are identified. Multiple small uncomplicated colonic diverticulosis. Rest unchanged. IMPRESSION: 1. Tiny concretion noted involving left renal lower calyx.-stable. 2. Right kidney shows hydronephrosis and hydroureter up to an obstructing calculus of size 2mm is noted in right vesicoureteric junction.-new finding. 3. 3 non-obstructing calculi of average size 2-3 mm are noted in the lower pole calyx of right kidney. 4. Multiple small uncomplicated colonic diverticulosis.-stable. 5. Hiatus hernia is noted , this has increased in size compared to the prior. Electronically signed by Frank Munguia 11-28-2024 05:13 AM
[2024-11-28] MEDS: cefTRIAXone SODIUM 2,000 MG/50 ML BAG IV STA (06:11)
[2024-11-28] MEDS: ACETAMINOPHEN 1,000 MG/100 ML VIAL IV STA (06:13)
[2024-11-28] MEDS: TAMSULOSIN HCL 0.4 MG CAP PO ONE (06:14)
--- NOTE | 2024-11-28 06:30 | History & Physical Report ---
Date of Service November 28, 2024 Assessment & Plan (1) Calculus of ureterovesical junction (UVJ): (2) Nausea & vomiting: Plan This patient is a 49-year-old female with a history of cyclic vomiting syndrome, adrenal nodule, depression, migraines who presents to the ED with acute onset of right lower abdominal pain with associated nausea/vomiting. It has been going on for 4 hours. No fevers but has had chills. She tried taking Ativan and a promethazine suppository at home without relief of her symptoms. She did have some urinary frequency and hesitancy at the onset of her symptoms but denies dysuria. The pain radiates around to the right side of her back. She was found on CT abdomen/pelvis to have a right UVJ 2 mm kidney stone with hydroureteronephrosis. Her UA showed blood but no WBCs. She did have 11-20 epithelial cells and 4+ bacteria which is likely contamination and not true infection. She was given ceftriaxone and a urine culture was sent. She will be admitted for intractable pain with right ureterolithiasis with hydroureteronephrosis. #Ureterolithiasis/abnormal UA-patient with 2 mm obstructing ureteral stone at the ureterovesicular junction with hydroureteronephrosis. UA with RBCs and 4+ bacteria but a lot of epithelial cells and 0 WBCs-this is contamination and not indicative of infection. There are no other signs of sepsis, no fever or leukocytosis. She did receive 1 dose of ceftriaxone in the ED but no antibiotics indicated further. Hopefully this will pass with IV fluids and Expulsive therapy - Admit to medical/surgical unit - Continue Flomax 0.4 Mg p.o. at bedtime - Keep n.p.o. in case of need for intervention with urology-consult urology appreciated - Start normal saline at 125 mL/h - Pain control with IV acetaminophen, IV morphine - Antiemetics with IV Zofran as needed #Nausea/vomiting-secondary to ureterolithiasis - Antiemetics and IV fluids as above #Depression-no acute issues - Hold home mirtazapine while n.p.o. and with nausea #Abdominal Migraines-no acute issues - Hold home nortriptyline, can use Maxalt as needed -hold home gabapentin DVT prophylaxis-SCDs Disposition-admit to medical/surgical unit History of Present Illness Chief Complaint: Right-sided abdominal pain Primary Care Provider: Shyam Rdz This patient is a 49-year-old female with a history of cyclic vomiting syndrome, adrenal nodule, depression, migraines who presents to the ED with acute onset of right lower abdominal pain with associated nausea/vomiting. It has been going on for 4 hours. No fevers but has had chills. She tried taking Ativan and a promethazine suppository at home without relief of her symptoms. She did have some urinary frequency and hesitancy at the onset of her symptoms but denies dysuria. The pain radiates around to the right side of her back. She was found on CT abdomen/pelvis to have a right UVJ 2 mm kidney stone with hydroureteronephrosis. Her UA showed blood but no WBCs. She did have 11-20 epithelial cells and 4+ bacteria which is likely contamination and not true infection. She was given ceftriaxone and a urine culture was sent. She will be admitted for intractable pain with right ureterolithiasis with hydroureteronephrosis. Allergies Allergy/AdvReac Type Severity Reaction Status Date / Time azithromycin [From Zithromax] Allergy Intermediate Rash Verified 12/08/21 01:09 divalproex sodium Allergy Intermediate Rash Verified 12/08/21 01:09 [From Depakote] erythromycin base Allergy Intermediate Rash Verified 12/08/21 01:09 Iodinated Contrast Media Allergy Intermediate MRI Verified 12/12/21 04:06 CONTRAST (SNEEZING,RASH) lamotrigine [From Lamictal] Allergy Intermediate Rash Verified 12/08/21 01:09 Home Medications Medication Instructions Recorded Confirmed Type ergocalciferol (vitamin D2) 1,250 1,250 mcg PO WK 12/08/21 12/11/21 History mcg (50,000 unit) capsule (Vitamin D2) gabapentin 100 mg tablet 100 mg PO TID 12/08/21 12/11/21 History mirtazapine 30 mg tablet (Remeron) 30 mg PO HS 12/08/21 12/11/21 History nortriptyline 50 mg capsule 100 mg PO HS 12/08/21 12/11/21 History ondansetron 4 mg disintegrating 4 mg PO Q6H PRN nausea and 12/08/21 12/11/21 Rx tablet vomiting #12 tabs promethazine 25 mg rectal 25 mg CO Q6H PRN Nausea 12/08/21 12/11/21 History suppository promethazine 25 mg rectal 25 mg CO Q6H PRN sedation #12 ea 12/08/21 12/11/21 Rx suppository promethazine 25 mg tablet 25 mg PO Q6H PRN Nausea 12/08/21 12/11/21 History rizatriptan 10 mg tablet (Maxalt) 10 mg PO DIRECTED PRN Migraine 12/08/21 12/11/21 History Headache metoclopramide HCl 10 mg tablet 10 mg PO ACHS 12/11/21 12/11/21 History Past Med/Surg History Problem List Nausea & vomiting (Acute) Right flank pain (Acute) UTI (urinary tract infection) (Acute) Calculus of ureterovesical junction (UVJ) (Acute) Adrenal nodule Leukocytosis Hypokalemia Epigastric abdominal pain Intractable nausea and vomiting (Acute) History of section Cyclic vomiting syndrome (Acute) Medical History Lyme disease Surgical History History of cholecystectomy Family History Other Family history non-contributory Social History Smoking Status: Never smoker Tobacco Type: E-cigarettes / Vaping Hx Alcohol Use: No Hx Substance Use: Yes Last Used Substance: Days (ago) Preferred Language: Upper Sorbian Communication Ability: Effective Executive Services Administrator Required: No Beliefs That Will Affect Care: Faith Faith Beliefs: RASTAFARI Current Living Situation: Spouse Feels Safe at Home: Yes Assistive Devices: None Review of Systems Review of Systems: All systems reviewed & are unremarkable except as noted in HPI & below Results & Data Results & Data Vital Signs (Past 12 Hours) Vital Signs Temp Pulse Resp BP Pulse Ox O2 Del Method 11/28/24 05:27 70 23 165/89 H 96 Room Air 11/28/24 04:30 81 18 173/97 H 100 Room Air 11/28/24 04:14 63 11/28/24 03:41 36.4 C L 74 18 164/97 H 97 Room Air Laboratory Results CBC, BMP, ionized calcium, LFTs, lipase, hCG, UA reviewed Diagnostic Findings CT abdomen/pelvis reviewed: Abdomen/Pelvis CT 11/28/24 03:50 EXAM: CT abd pelvis IV con only CLINICAL HISTORY: RLQ pain TECHNIQUE: Contiguous axial images were obtained from the level of the diaphragm to the pubic symphysis with intravenous contrast. Coronal and sagittal reconstructions were likewise performed and indicated to increase the sensitivity for detecting clinically relevant pathology. If IV contrast material had not been administered, the likelihood of detecting abnormalities relevant to the patient's condition would have been substantially decreased. CT scan was performed according to ALARA (as low as reasonable achievable). 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 Sliding hiatus hernia noted. The liver is normal in size and attenuation. No focal liver lesions are seen. There is no intra or extrahepatic biliary ductal dilatation. Hepatic vasculature is patent. The gallbladder is removed. The spleen, pancreas, and adrenal glands are unremarkable. The kidneys are normal in size and attenuation. Tiny concretion noted involving left renal lower calyx. 3 non-obstructing calculi of average size 2-3 mm are noted in the lower pole calyx of right kidney. Right kidney shows hydronephrosis and hydroureter up to an obstructing calculus of size 2mm is noted in right vesicoureteric junction. The bladder is normal in contour. Pelvic viscera are unremarkable. No focal or diffuse bowel wall thickening or evidence of bowel obstruction is identified. Abdominal and pelvic vasculature is patent. No adenopathy or fluid collections are seen. No aggressive appearing osseous lesions are identified. Multiple small uncomplicated colonic diverticulosis. Rest unchanged. IMPRESSION: 1. Tiny concretion noted involving left renal lower calyx.-stable. 2. Right kidney shows hydronephrosis and hydroureter up to an obstructing calculus of size 2mm is noted in right vesicoureteric junction.-new finding. 3. 3 non-obstructing calculi of average size 2-3 mm are noted in the lower pole calyx of right kidney. 4. Multiple small uncomplicated colonic diverticulosis.-stable. 5. Hiatus hernia is noted , this has increased in size compared to the prior. Electronically signed by Frank Munguia 11-28-2024 05:13 AM Code Status & VTE Plan Code Status Full code VTE Prophylaxis Plan VTE Prophylaxis will be ordered: Yes PG Care Time/CCT Total # of Minutes Spent Total Time Spent with Patient: Total time spent is greater than 50% in coordination of care (as documented) at patient's floor/unit and/or counseling patient: Coding Level of Care Code 51143 INT INP/OBS CARE 3/75MIN Diagnoses Calculus of ureterovesical junction (UVJ) N20.1 Nausea & vomiting R11.2
[2024-11-28] MEDS: MoRPHine SULFATE 2 MG/ML CARP IV STA (08:06)
[2024-11-28] MEDS ORDERED: ACETAMINOPHEN 1,000 MG/100 ML VIAL IV PRN (08:41)
[2024-11-28] MEDS: SODIUM CHLORIDE 0.9% 1,000 ML IV SCH (09:39)
--- NOTE | 2024-11-28 11:22 | Urology Consultation ---
Date of Consultation November 28, 2024 Assessment & Plan (1) Right flank pain: (2) Nausea & vomiting: (3) UTI (urinary tract infection): Plan We reviewed the stone in her distal right ureter. This is small enough that it has good chance of passing spontaneously, however in the setting of possible UTI we discussed the role for surgical intervention with cystoscopy, right retrograde pyelogram and right ureteral stent placement. We discussed risk of bleeding, infection, need for additional procedures. With her sweats and chills reported at home, I think would be reasonable to proceed with surgical intervention to decompress her kidney. She would like to proceed with surgery. History of Present Illness Reason for Consultation: Right ureteral stone Attending Physician: Jeanine Cota MD History of Present Illness This is a 49-year-old female who presented to the emergency department on 11/28 with right-sided abdominal pain. She reports associated sweats and chills which seems to coincide with the pain. Workup in the ED demonstrated normal WBC (10.65). Creatinine was slightly elev ated from her baseline at 1.16 (previously seen as low as 0.63). Glucose was elevated at 173. Urinalysis demonstrated 3+ blood, negative nitrites, negative leukocyte Estrace but 4+ bacteria. She had a CT scan of the abdomen and pelvis performed. I independently reviewed these images from 11/28/2024. Both kidneys are in normal position. There is a slightly delayed nephrogram on the right side with hydronephrosis. This extends down the ureter to a 4 mm stone in the distal left ureter. There are punctate nonobstructing calcifications in the right kidney. She has small cysts of the left kidney. Bladder was decompressed. Urology was consulted given her flank pain and right ureteral stone. She has a history of nephrolithiasis that she has passed spontaneously. She has had UTIs in the past and reports some similar symptoms at this point. She denies any overt fevers, but endorses sweats and chills especially when the pain flares up. Allergies Allergy/AdvReac Type Severity Reaction Status Date / Time azithromycin [From Zithromax] Allergy Intermediate Rash Verified 12/08/21 01:09 divalproex sodium Allergy Intermediate Rash Verified 12/08/21 01:09 [From Depakote] erythromycin base Allergy Intermediate Rash Verified 12/08/21 01:09 Iodinated Contrast Media Allergy Intermediate MRI Verified 12/12/21 04:06 CONTRAST (SNEEZING,RASH) lamotrigine [From Lamictal] Allergy Intermediate Rash Verified 12/08/21 01:09 Home Medications Medication Instructions Recorded Confirmed Type ergocalciferol (vitamin D2) 1,250 1,250 mcg PO WK 12/08/21 11/28/24 History mcg (50,000 unit) capsule (Vitamin D2) gabapentin 100 mg tablet 100 mg PO TID 12/08/21 11/28/24 History mirtazapine 30 mg tablet (Remeron) 30 mg PO HS 12/08/21 11/28/24 History nortriptyline 50 mg capsule 100 mg PO HS 12/08/21 11/28/24 History ondansetron 4 mg disintegrating 4 mg PO Q6H PRN nausea and 12/08/21 11/28/24 Rx tablet vomiting #12 tabs promethazine 25 mg rectal 25 mg MS Q6H PRN Nausea 12/08/21 11/28/24 History suppository rizatriptan 10 mg tablet (Maxalt) 10 mg PO DIRECTED PRN Migraine 12/08/21 11/28/24 History Headache CoQ-10 1 cap PO DAILY 11/28/24 11/28/24 History atenolol 25 mg tablet 25 mg PO DAILY 11/28/24 11/28/24 History cyanocobalamin (vitamin B-12) 1 tab PO DAILY 11/28/24 11/28/24 History frovatriptan 2.5 mg tablet 2.5 mg PO UD PRN Migraine Headache 11/28/24 11/28/24 History levonorgestrel-ethinyl estradiol 1 tab PO DAILY 11/28/24 11/28/24 History 0.1 mg-20 mcg tablet lorazepam 0.5 mg tablet 0.5 mg PO DIRECTED PRN Other 11/28/24 11/28/24 History naproxen 500 mg tablet 500 mg PO Q12 PRN Pain 11/28/24 11/28/24 History Patient History Medical History Lyme disease Surgical History History of cholecystectomy Family History Other Family history non-contributory Social History Smoking Status: Never smoker Tobacco Type: E-cigarettes / Vaping Hx Alcohol Use: No Hx Substance Use: Yes Last Used Substance: Days (ago) Preferred Language: St Helenian Communication Ability: Effective Rotoformer Backtender Required: No Beliefs That Will Affect Care: Christianity Christianity Beliefs: MU-ISM Current Living Situation: Spouse Feels Safe at Home: Yes Assistive Devices: None Review of Systems Review of Systems: 10 point review of systems negative exce pt for otherwise indicated. Physical Exam Constitutional: well developed and well nourished; no acute distress Eyes: + anicteric sclerae; pupils not irregula r Respiratory: normal respiratory effort; no respiratory distress, does not use accessory muscles and no cough Cardiovascular: well perfused Gastrointestinal (Abdomen): Inspection/Auscultation: abdomen normal to inspection; abdomen not distended Musculoskeletal: Extremities: extremities normal to inspection Skin: normal turgor; no rashes and no lesions Neurologic: moves all extremities and awake Psychiatric: Orientation: alert and oriented x 3 Results & Data Vital Signs (Past 12 Hours) Vital Signs Temp Pulse Pulse Resp BP BP Pulse Ox 11/28/24 11:00 67 19 156/103 H 98 11/28/24 09:00 77 18 131/76 98 11/28/24 08:36 66 11/28/24 07:00 77 13 160/74 H 99 11/28/24 06:15 73 20 157/96 H 97 11/28/24 05:27 70 23 165/89 H 96 11/28/24 04:30 81 18 173/97 H 100 11/28/24 04:14 63 11/28/24 03:41 36.4 C L 74 18 164/97 H 97 O2 Del Method 11/28/24 11:00 Room Air 11/28/24 09:00 Room Air 11/28/24 08:36 11/28/24 07:00 Room Air 11/28/24 06:15 Room Air 11/28/24 05:27 Room Air 11/28/24 04:30 Room Air 11/28/24 04:14 11/28/24 03:41 Room Air PG Care Time/CCT Total # of Minutes Spent Total Time Spent with Patient: Total time spent is greater than 50% in coordination of care (as documented) at patient's floor/unit and/or counseling patient: Coding Level of Care Code 63718 OP VST NEW MOD 45 MIN Diagnoses Right flank pain R10.9 Nausea & vomiting R11.2 UTI (urinary tract infection) N39.0
[2024-11-28] MEDS: MoRPHine SULFATE 2 MG/ML CARP IV PRN (12:14)
[2024-11-28] MEDS ORDERED: MIDAZOLAM HCL 1 MG/ML 2ML VIAL ONE (14:07)
[2024-11-28] MEDS ORDERED: fentaNYL citrate PF 100 MCG/2 ML VIAL ONE (14:07)
[2024-11-28] MEDS ORDERED: PROMETHAZINE HCL 6.25 MG in SODIUM CHLORIDE 0.9% 50 ML IV PRN (14:13)
[2024-11-28] MEDS ORDERED: fentaNYL citrate PF 100 MCG/2 ML VIAL IV PRN (14:13)
[2024-11-28] MEDS ORDERED: DROPERIDOL 5 MG/2 ML VIAL IV PRN (14:13)
[2024-11-28] MEDS ORDERED: ePHEDrine sulfate 50 MG/ML AMP IV PRN (14:13)
[2024-11-28] MEDS ORDERED: ATROPINE SULFATE 0.1 MG/ML 10ML SYR IV PRN (14:13)
--- NOTE | 2024-11-28 14:13 | Anesthesiology Consultation ---
Date of Service November 28, 2024 Assessment & Plan ASA ASA2 Proposed Anesthesia Anesthesia Type: MAC Risk / Benefits Reviewed With: PT / POA / Parent / Guardian, Accepts Plan and Informed Consent Obtained History Surgery Operation Date: 11/28/24 10:30 Proposed Procedures p Cystoscopy, Right Stent Placement - Adam Gallegos MD Height/Weight Height: 5 ft 2 in Weight: 76.5 kg Allergies Allergy/AdvReac Type Severity Reaction Status Date / Time azithromycin [From Zithromax] Allergy Intermediate Rash Verified 11/28/24 13:56 divalproex sodium Allergy Intermediate Rash Verified 11/28/24 13:56 [From Depakote] erythromycin base Allergy Intermediate Rash Verified 11/28/24 13:56 Iodinated Contrast Media Allergy Intermediate MRI Verified 11/28/24 13:56 CONTRAST (SNEEZING,RASH) lamotrigine [From Lamictal] Allergy Intermediate Rash Verified 11/28/24 13:56 Medications Home Medications Medication Instructions Recorded Confirmed Last Taken ergocalciferol (vitamin D2) 1,250 1,250 mcg PO WK 12/08/21 11/28/24 11/27/24 08:00 mcg (50,000 unit) capsule (Vitamin D2) gabapentin 100 mg tablet 100 mg PO TID 12/08/21 11/28/24 11/27/24 08:00 mirtazapine 30 mg tablet (Remeron) 30 mg PO HS 12/08/21 11/28/24 11/27/24 08:00 nortriptyline 50 mg capsule 100 mg PO HS 12/08/21 11/28/24 11/27/24 08:00 ondansetron 4 mg disintegrating 4 mg PO Q6H PRN nausea and 12/08/21 11/28/24 11/27/24 08:00 tablet vomiting #12 tabs promethazine 25 mg rectal 25 mg VT Q6H PRN Nausea 12/08/21 11/28/24 11/27/24 08:00 suppository rizatriptan 10 mg tablet (Maxalt) 10 mg PO DIRECTED PRN Migraine 12/08/21 11/28/24 11/27/24 08:00 Headache CoQ-10 1 cap PO DAILY 11/28/24 11/28/24 11/27/24 08:00 atenolol 25 mg tablet 25 mg PO DAILY 11/28/24 11/28/24 11/27/24 08:00 cyanocobalamin (vitamin B-12) 1 tab PO DAILY 11/28/24 11/28/24 11/27/24 08:00 frovatriptan 2.5 mg tablet 2.5 mg PO UD PRN Migraine Headache 11/28/24 11/28/24 11/27/24 08:00 levonorgestrel-ethinyl estradiol 1 tab PO DAILY 11/28/24 11/28/24 11/27/24 08:00 0.1 mg-20 mcg tablet lorazepam 0.5 mg tablet 0.5 mg PO DIRECTED PRN Other 11/28/24 11/28/24 11/27/24 08:00 naproxen 500 mg tablet 500 mg PO Q12 PRN Pain 11/28/24 11/28/24 11/27/24 08:00 Active Medications Generic Name Dose Route Start Last Admin Trade Name Freq PRN Reason Stop Dose Admin Sodium Chloride 1,000 mls @ 125 mls/hr 11/28/24 08:41 11/28/24 13:45 Nss IV 12/01/24 08:40 0 mls/hr .Q8H KRISTEN Infusion Morphine Sulfate 2 mg 11/28/24 08:41 11/28/24 12:14 Morphine Sulfate 2 Mg/Ml Carp IV 12/12/24 08:40 2 mg Q3H PRN Administration Moderate-severe pain NPO Date Last Intake of Fluids: 11/28/24 Time Last Intake of Fluids: 11:30 Last Intake of Fluids Comment: ice chips Date Last Intake of Solids: 11/27/24 Time Last Intake of Solids: 23:59 Past Medical History Medical History Lyme disease Exercise / Class Metabolic Activity II 4-5 Yardwork/Stairs/Walk up hill Past Family History Family History Other Family history non-contributory Past Surgical History Surgical History History of cholecystectomy Past Anesthesia History No Hx of Anesthesia Complications and No Family Hx of Anesthesia Complications History of PONV No Hx of PONV and No Hx of Motion Sickness Social History Smoking Status: Never smoker Hx Alcohol Use: No Hx Substance Use: Yes substance use type: marijuana Last Used Substance: Days (ago) Physical Exam Vital Signs Last Vital Signs Temp 36.4 C L 11/28/24 13:57 Pulse 65 11/28/24 13:57 Resp 18 11/28/24 13:57 BP 153/87 H 11/28/24 13:57 Pulse Ox 100 11/28/24 13:57 O2 Del Method Room Air 11/28/24 13:57 Constitutional no acute distress ENMT Mouth: no dentition abnormality Thyromental Distance: > or= 3.5 Finger Breadths Mallampati Class: III Neck normal visual inspection Respiratory normal respiratory effort; no respiratory distress Auscultation: lungs clear to auscultation bilaterally Cardiovascular Rate/Rhythm: regular rate and regular rhythm Heart Sounds: no murmur Musculoskeletal Spine: normal cervical ROM Psychiatric Orientation: alert and oriented x 3 Testing Laboratory Results 11/28/24 04:00 11/28/24 04:00 Urine Color Dark Yellow 11/28/24 03:55 Urine Appearance Cloudy (Clear) A 11/28/24 03:55 Urine pH 5.5 (4.5-7.5) 11/28/24 03:55 Ur Specific Mobile 1.033 (1.000-1.030) H 11/28/24 03:55 Urine Protein 1+ (Negative) H 11/28/24 03:55 Urine Glucose (UA) Negative (Negative) 11/28/24 03:55 Urine Ketones 1+ (Negative) H 11/28/24 03:55 Urine Nitrite Negative (Negative) 11/28/24 03:55 Ur Leukocyte Esterase Negative (Negative) 11/28/24 03:55 Urine WBC (Auto) 0-5 /hpf (0-5) 11/28/24 03:55 Urine RBC (Auto) >20 /hpf (0-2) H 11/28/24 03:55 U Hyaline Cast (Auto) 3-5 /lpf (0-2) H 11/28/24 03:55 U Epithel Cells (Auto) 11-20 /hpf (0-2) H 11/28/24 03:55 Urine Bacteria (Auto) 4+ (None Seen) H 11/28/24 03:55 11/28/24 04:07 POC Glucose (other) 173 H Day of Procedure Evaluation. Date of Surgery November 28, 2024 Height/Weight Height: 5 ft 2 in Weight: 76.5 kg Vital Signs Last Vital Signs Temp 36.4 C L 11/28/24 13:57 Pulse 65 11/28/24 13:57 Resp 18 11/28/24 13:57 BP 153/87 H 11/28/24 13:57 Pulse Ox 100 11/28/24 13:57 O2 Del Method Room Air 11/28/24 13:57 Allergies Allergy/AdvReac Type Severity Reaction Status Date / Time azithromycin [From Zithromax] Allergy Intermediate Rash Verified 11/28/24 13:56 divalproex sodium Allergy Intermediate Rash Verified 11/28/24 13:56 [From Depakote] erythromycin base Allergy Intermediate Rash Verified 11/28/24 13:56 Iodinated Contrast Media Allergy Intermediate MRI Verified 11/28/24 13:56 CONTRAST (SNEEZING,RASH) lamotrigine [From Lamictal] Allergy Intermediate Rash Verified 11/28/24 13:56 Medications Home Medications Medication Instructions Recorded Confirmed Last Taken ergocalciferol (vitamin D2) 1,250 1,250 mcg PO WK 12/08/21 11/28/24 11/27/24 08:00 mcg (50,000 unit) capsule (Vitamin D2) gabapentin 100 mg tablet 100 mg PO TID 12/08/21 11/28/24 11/27/24 08:00 mirtazapine 30 mg tablet (Remeron) 30 mg PO HS 12/08/21 11/28/24 11/27/24 08:00 nortriptyline 50 mg capsule 100 mg PO HS 12/08/21 11/28/24 11/27/24 08:00 ondansetron 4 mg disintegrating 4 mg PO Q6H PRN nausea and 12/08/21 11/28/24 11/27/24 08:00 tablet vomiting #12 tabs promethazine 25 mg rectal 25 mg VT Q6H PRN Nausea 12/08/21 11/28/24 11/27/24 08:00 suppository rizatriptan 10 mg tablet (Maxalt) 10 mg PO DIRECTED PRN Migraine 12/08/21 11/28/24 11/27/24 08:00 Headache CoQ-10 1 cap PO DAILY 11/28/24 11/28/24 11/27/24 08:00 atenolol 25 mg tablet 25 mg PO DAILY 11/28/24 11/28/24 11/27/24 08:00 cyanocobalamin (vitamin B-12) 1 tab PO DAILY 11/28/24 11/28/24 11/27/24 08:00 frovatriptan 2.5 mg tablet 2.5 mg PO UD PRN Migraine Headache 11/28/24 11/28/24 11/27/24 08:00 levonorgestrel-ethinyl estradiol 1 tab PO DAILY 11/28/24 11/28/24 11/27/24 08:00 0.1 mg-20 mcg tablet lorazepam 0.5 mg tablet 0.5 mg PO DIRECTED PRN Other 11/28/24 11/28/24 11/27/24 08:00 naproxen 500 mg tablet 500 mg PO Q12 PRN Pain 11/28/24 11/28/24 11/27/24 08:00 Active Medications Generic Name Dose Route Start Last Admin Trade Name Freq PRN Reason Stop Dose Admin Sodium Chloride 1,000 mls @ 125 mls/hr 11/28/24 08:41 11/28/24 13:45 Nss IV 12/01/24 08:40 0 mls/hr .Q8H KRISTEN Infusion Morphine Sulfate 2 mg 11/28/24 08:41 11/28/24 12:14 Morphine Sulfate 2 Mg/Ml Carp IV 12/12/24 08:40 2 mg Q3H PRN Administration Moderate-severe pain Past Anesthesia History No Hx of Anesthesia Complications and No Family Hx of Anesthesia Complications History of PONV No Hx of PONV and No Hx of Motion Sickness NPO Date Last Intake of Fluids: 11/28/24 Time Last Intake of Fluids: 11:30 Last Intake of Fluids Comment: ice chips Date Last Intake of Solids: 11/27/24 Time Last Intake of Solids: 23:59 HCG & FBG Results 11/28/24 04:07 POC Glucose (other) 173 H Home Medications Home Medications Medication Instructions Recorded Confirmed Last Taken ergocalciferol (vitamin D2) 1,250 1,250 mcg PO WK 12/08/21 11/28/24 11/27/24 08:00 mcg (50,000 unit) capsule (Vitamin D2) gabapentin 100 mg tablet 100 mg PO TID 12/08/21 11/28/24 11/27/24 08:00 mirtazapine 30 mg tablet (Remeron) 30 mg PO HS 12/08/21 11/28/24 11/27/24 08:00 nortriptyline 50 mg capsule 100 mg PO HS 12/08/21 11/28/24 11/27/24 08:00 ondansetron 4 mg disintegrating 4 mg PO Q6H PRN nausea and 12/08/21 11/28/24 11/27/24 08:00 tablet vomiting #12 tabs promethazine 25 mg rectal 25 mg VT Q6H PRN Nausea 12/08/21 11/28/24 11/27/24 08:00 suppository rizatriptan 10 mg tablet (Maxalt) 10 mg PO DIRECTED PRN Migraine 12/08/21 11/28/24 11/27/24 08:00 Headache CoQ-10 1 cap PO DAILY 11/28/24 11/28/24 11/27/24 08:00 atenolol 25 mg tablet 25 mg PO DAILY 11/28/24 11/28/24 11/27/24 08:00 cyanocobalamin (vitamin B-12) 1 tab PO DAILY 11/28/24 11/28/24 11/27/24 08:00 frovatriptan 2.5 mg tablet 2.5 mg PO UD PRN Migraine Headache 11/28/24 11/28/24 11/27/24 08:00 levonorgestrel-ethinyl estradiol 1 tab PO DAILY 11/28/24 11/28/24 11/27/24 08:00 0.1 mg-20 mcg tablet lorazepam 0.5 mg tablet 0.5 mg PO DIRECTED PRN Other 11/28/24 11/28/24 11/27/24 08:00 naproxen 500 mg tablet 500 mg PO Q12 PRN Pain 11/28/24 11/28/24 11/27/24 08:00 Active Medications Generic Name Dose Route Start Last Admin Trade Name Freq PRN Reason Stop Dose Admin Sodium Chloride 1,000 mls @ 125 mls/hr 11/28/24 08:41 11/28/24 13:45 Nss IV 12/01/24 08:40 0 mls/hr .Q8H KRISTEN Infusion Morphine Sulfate 2 mg 11/28/24 08:41 11/28/24 12:14 Morphine Sulfate 2 Mg/Ml Carp IV 12/12/24 08:40 2 mg Q3H PRN Administration Moderate-severe pain Exercise / Class Metabolic Activity Metabolic Activity: II 4-5 Yardwork/Stairs/Walk up hill Physical Exam Constitutional: no acute distress Mouth: no dentition abnormality Thyromental Distance: > or= 3.5 Finger Breadths Mallampati Class: III Neck: + visual inspection normal Respiratory: + respiratory effort normal and + clear to auscultation bilaterally; no respiratory distress Cardiovascular: + regular rate and + regular rhythm; no murmur Musculoskeletal: no limited cervical ROM Psychiatric: + alert and + oriented x 3 ASA ASA2 Proposed Anesthesia Proposed Anesthesia: MAC Risk / Benefits Reviewed With: PT / POA / Parent / Guardian, Accepts Plan and Informed Consent Obtained
[2024-11-28] MEDS ORDERED: PROPOFOL IV EMULSION 10 MG/ML 20 ML VIAL IV ONE ×2 (14:24)
[2024-11-28] MEDS ORDERED: LIDOCAINE 2% 2 ML VIAL/AMP(20MG/ML) INFIL ONE (14:25)
[2024-11-28] MEDS ORDERED: ONDANSETRON INJ 2 MG/ML 2 ML VIAL ONE (14:25)
--- NOTE | 2024-11-28 15:02 | Operative Report ---
PG Post Operative Report Pre & Post Diagnosis Operation Date: 11/28/24 10:30 Pre-Op Diagnosis: Right flank pain, Nausea & vomiting, Urinary Tract Infection Post-Op Diagnosis: Right flank pain, Nausea & vomiting, Urinary Tract Infection I identified the patient and participated in the time-out.: Yes Procedure Operation Date: 11/28/24 10:30 Actual Procedures p Cystoscopy, right ureteroscopy, stone basketing, Right Stent Placement(Right) - Adam Gallegos MD Surgeon Adam Gallegos MD [employer] None Estimated Blood Loss 0 Findings See Below Stone visible in the distal ureter, removed with a wire basket Ureteral stent left in place with strings attached. Specimens Right ureteral stone for chemical analysis Drains 6 [place] x 24 cm double-J ureteral stent in the right ureter Anesthesia Type MAC Complications none Disposition Accompanied Patient To Recovery: Yes Disposition: Recovery Room Indications This is a 49-year-old female who presented to the emergency department with right-sided flank pain and was found to have a right ureteral stone. Due to ongoing pain she is brought to the OR for right ureteral stent placement. Description of Procedure The patient was identified in the holding area and informed consent was confirmed. She was marked on the right side, then was taken to the operating room where general anesthesia was initiated. She was placed in the dorsal lithotomy position with all pressure points appropriately padded. She was prepped and draped in the usual sterile fashion and a preoperative timeout was performed. A well-lubricated cystoscope was inserted per urethra and panendoscopy was performed. The urethra was normal with no strictures or mucosal abnormalities. Her bladder appeared grossly normal with no tumors or stones appreciated. Ureteral orifices were in orthotopic position bilaterally A 0.038 inch zip wire was advanced to the right kidney under fluoroscopic guidance. At the ureteral orifice there was a shadow suspicious for her stone. The drainage of urine from the kidney was clear at this point and I elected to try to remove her stone. The semirigid ureteroscope was advanced just inside the ureteral orifice at which point the stone was visible. The Nitinol wire basket was used to grasp and withdraw the stone, which correlated well with that which was seen on CT scan. Over the wire I then advanced a 6 [place] x 24 centimeter double-J ureteral stent was advanced. When the wire was removed, the proximal curl was visualized in the kidney with x-ray, and the distal curl visualized in the bladder with the cystoscope. Strings were left attached to the stent to facilitate removal. At this point the bladder was drained and all instrumentation was removed. The strings were secured to her thigh using benzoin and Tegaderm. The patient was then awakened from anesthesia and was brought to the PACU in stable condition. I attest to the content of the Intraoperative Record and any orders documented therein. Any exceptions are noted below.
--- NOTE | 2024-11-28 15:15 | Anesthesiology Progress Note ---
Date of Service November 28, 2024 Anesthesia Post Procedure Vital Signs Vital Signs: Temp Pulse Pulse Resp BP BP BP 11/28/24 15:04 36.1 C L 83 21 106/72 11/28/24 13:57 36.4 C L 65 18 153/87 H 11/28/24 11:00 67 19 156/103 H 11/28/24 09:00 77 18 131/76 11/28/24 08:36 66 11/28/24 07:00 77 13 160/74 H 11/28/24 06:15 73 20 157/96 H 11/28/24 05:27 70 23 165/89 H 11/28/24 04:30 81 18 173/97 H 11/28/24 04:14 63 11/28/24 03:41 36.4 C L 74 18 164/97 H Pulse Ox O2 Del Method 11/28/24 15:04 99 Room Air 11/28/24 13:57 100 Room Air 11/28/24 11:00 98 Room Air 11/28/24 09:00 98 Room Air 11/28/24 08:36 11/28/24 07:00 99 Room Air 11/28/24 06:15 97 Room Air 11/28/24 05:27 96 Room Air 11/28/24 04:30 100 Room Air 11/28/24 04:14 11/28/24 03:41 97 Room Air Pain Intensity Right Flank: Pain Intensity: 6 Transfer of Care Handoff Completed per policy Notes Mental Status: alert / awake / arousable and participated in evaluation Nausea / Vomiting: adequately controlled Pain: adequately controlled Airway Patency, RR, SpO2: stable & adequate BP & HR: stable & adequate Hydration State: stable & adequate Anesthetic Complications: no major complications apparent and Pt Satisfied with anesthetic care
--- NOTE | 2024-11-28 16:49 | Fluoroscopy Report ---
INTRAOPERATIVE FLUOROSCOPIC IMAGES: CLINICAL HISTORY: Right retrograde exam. COMPARISON: CT of the abdomen and pelvis performed earlier today. Fluoroscopy time: 4.9 seconds. Number of fluoroscopic images: 2 Ka,r: 1.41 mGy: FINDINGS: Fluoroscopy was provided during right retrograde exam, lithotripsy and right ureteral stent placement. IMPRESSION: Fluoroscopy provided during right retrograde exam, lithotripsy and right ureteral stent p lacement. Electronically signed by: Vince Srinivasan M.D. 11/28/2024 4:47 PM
[2024-11-28] MEDS: ONDANSETRON INJ 2 MG/ML 2 ML VIAL IV PRN (18:28)
[2024-11-28] MEDS: PROCHLORPERAZINE 5 MG in SYRINGE 4 ML IV PRN (20:42)
[2024-11-28] MEDS: TAMSULOSIN HCL 0.4 MG CAP PO SCH (21:33)
[2024-11-29 07:46] LABS: Basophils # (auto) 0.02 K/uL (0.00-0.20); Basophils % (auto) 0.1 %; Eosinophils # (auto) 0.01 K/uL (0.00-0.50); Eosinophils % (auto) 0.1 %; Hematocrit (blood only) 36.1 % (37.0-47.0); Hemoglobin 12.1 g/dl (12.0-16.0); Immature Granulocytes # (auto) 0.06 K/uL (0.01-0.20); Immature Granulocytes % (auto) 0.4 %; Lymphocytes # (auto) 1.77 K/uL (1.20-3.40); Lymphocytes % (auto) 12.7 %; Mean Corpuscular Hemoglobin 30.8 pg (25.0-34.0); Mean Corpuscular Hgb Conc 33.5 g/dL (32.0-36.0); Mean Corpuscular Volume 91.9 fL (80.0-100.0); Mean Platelet Volume 9.6 fL (9.4-12.4); Monocytes # (auto) 0.61 K/uL (0.11-0.59); Monocytes % (auto) 4.4 %; Neutrophils # (auto) 11.52 K/uL (1.40-6.50); Neutrophils % (auto) 82.3 %; Platelet Count 300 K/uL (130-400); RDW Coefficient of Variation 12.5 % (11.5-14.5); RDW Standard Deviation 41.6 fL (36.4-46.3); Red Blood Count 3.93 M/uL (4.20-5.40); White Blood Count 13.99 K/ul (4.8-10.8)
[2024-11-29 08:06] LABS: BUN Creatinine Ratio 13.5 (10-20); Calcium 8.3 mg/dl (8.6-10.3); Potassium 3.2 mmol/L (3.5-5.1)
[2024-11-29] MEDS ORDERED: RIZATRIPTAN BENZOATE 10 MG TAB PO PRN (08:44)
[2024-11-29] MEDS ORDERED: PROMETHAZINE HCL 25 MG SUPP PR PRN (08:44)
[2024-11-29] MEDS ORDERED: NAPROXEN 250 MG TAB PO PRN (08:44)
[2024-11-29] MEDS ORDERED: NON-FORMULARY MEDICATION (Coq-10 1 CAP) PO SCH (09:00)
[2024-11-29] MEDS: LORazepam 0.5 MG TAB PO PRN (09:41)
--- NOTE | 2024-11-29 09:46 | Urology Progress Note ---
Date of Service November 29, 2024 Assessment & Plan (1) Right flank pain: (2) UTI (urinary tract infection): Plan: Patient POD #1 s/p Cystoscopy, right ureteroscopy, stone basketing, Right Stent Placement Afebrile, hemodynamically stable Labs reviewedcreatinine 0.74, WBC 13.99, hemoglobin 12.1 Urine culture pending She reports stent discomfort and significant urinary incontinence On exam, her tethered right ureteral stent was protruding from her urethra Therefore, I removed her tethered stent at bedside Discussed with her that she may experience ureteral spasm after stent removal Recommend hydration, tamsulosin, and pain management as needed, consider oxyb utynin for ureteral spasm Recommend continue supportive care and medical management per hospital medicine service Patient can be discharged from perspective when medically stable Will arrange outpatient follow-up with our service will sign off, please contact our service with any additional questions or concerns Admission and Anticipated Discharge Date Admission Date: November 28, 2024 Subjective Patient seen and examined at bedside this morning. She is awake and resting in bed. She reports flank discomfort. She reports she has cyclic vomiting syndrome and was not on her scheduled medications, reports nausea vomiting. She reports she is having significant urinary incontinence. No fever or chills. Labs todaycreatinine 0.74, WBC 13.99. Review of Systems Constitutional: as per Subjective / HPI Genitourinary: as per Subjective / HPI Physical Exam Constitutional: no acute distress and + uncomfortable Respiratory: normal respiratory effort; no respiratory distress and no labored breathing Gastrointestinal (Abdomen): Inspection/Auscultation: abdomen normal to inspection Musculoskeletal: Head/Neck/Chest: normocephalic Neurologic: moves all extremities and awake Psychiatric: Orientation: alert and oriented x 3 Genitourinary: On exam, tethered ureteral stent was protruding from her urethra. Therefore, I removed her tethered stent. Patient tolerated procedure well. Results & Data Vital Signs (Past 12 Hours) Vital Signs Temp Pulse Resp BP BP Pulse Ox O2 Del Method 11/29/24 07:44 36.6 C 74 16 134/77 100 Room Air 11/29/24 03:08 36.8 C 77 18 146/87 H 96 Room Air 11/28/24 23:08 37.1 C 82 18 141/78 H 98 Room Air PG Care Time/CCT Total # of Minutes Spent Total Time Spent with Patient: Total time spent is greater than 50% in coordination of care (as documented) at patient's floor/unit and/or counseling patient: Coding Level of Care Code 03307 SUB INP/OBS CARE 2/35MIN Diagnoses Right flank pain R10.9 UTI (urinary tract infection) N39.0
[2024-11-29 10:25] LABS: Albumin Level 3.9 gm/dl (3.4-5.0)
[2024-11-29] MEDS: POTASSIUM CHLORIDE CRTAB 20 MEQ TABCR PO STA ×2 (11:05→11:18)
[2024-11-29 11:08] VITALS: BP 160/93; RESP 18; TEMP 98.8; O2SAT 99
[2024-11-29] MEDS: ATENOLOL 25 MG TABLET PO SCH (11:18)
[2024-11-29] MEDS: GABAPENTIN 100 MG CAP PO SCH (11:18)
[2024-11-29] MEDS: CYANOCOBALAMIN (B-12) 500 MCG TABLET PO SCH (11:18)
[2024-11-29 11:23] LABS: Appearance Urine Clear (Clear); Bacteria Urine Automated None Seen (None Seen); Bilirubin Urine Negative (Negative); Blood Urine 2+ (Negative); Cast Urine Automated 0-2 /lpf (0-2); Color Urine Yellow; Epithelial Cell Urine Auto 0-2 /hpf (0-2); Glucose Urine UA Negative (Negative); Ketones Urine Negative (Negative); Leukocyte Esterase Urine Negative (Negative); Nitrite Urine Negative (Negative); Protein Urine Trace (Negative); RBC Urine Automated >20 /hpf (0-2); Specific Gravity Urine 1.011 (1.000-1.030); Urobilinogen Urine Negative (Negative); WBC Urine Automated 0-5 /hpf (0-5); pH Urine 7.5 (4.5-7.5)
[2024-11-29] MEDS: ONDANSETRON 4 MG OD TAB PO PRN (12:06)
[2024-11-29 12:25] VITALS: PULSE 74
--- NOTE | 2024-11-29 12:34 | Discharge Summary ---
Discharge Summary Date of Service November 29, 2024 Principal Dx & Hospital Course #1 = Principal Diagnosis (1) Calculus of ureterovesical junction (UVJ): (2) Nausea & vomiting: Plan [id number] female with PMH of FULL CODE @ home, obesity with BMI 30.8 (height 157.5 cm; weight 76.5 kg), cyclic vomiting syndrome, adrenal nodule, major depression on nortriptyline 100mg PO qhs and mirtazapine 30mg PO qhs, anxiety disorder on lorazepam 0.5mg PO daily prn anxiety, migraine headaches on frovatriptan 2.5mg PO UD prn migraine headache and gabapentin 100mg PO tid, and right-sided ureterolithiasis, who presented to [facility] ER on 11/28/2024 with complaints of acute onset of right lower abdominal pain with associated nausea/vomiting, of approximately 4 hours duration. Patient denied fevers or diaphoresis, but conceded to chills. Patient took both home-scheduled ativan and a promethazine suppository at home without relief of her symptoms. Patient also reported some urinary frequency and hesitancy at the onset of her symptoms but denied dysuria. The pain radiated around to the right side of her back. Patient was found on CT abdomen/pelvis with IV contrast (11/28/2024, 3:50am) to have a 2mm right UVJ stone with hydroureteronephrosis. Patient's first U/A (11/28/2024, 3:55am) showed blood but no WBCs, 11-20 epithelial cells, and 4+ bacteria, consistent with contamination and not true infection. Urine culture (11/28/2024, 3:55am) shows no growth to date as of 11/29/2024, 12:30pm. Patient subsequently received ceftriaxone 2g IV x 1 dose (11/28/2024, 6:11am) in [facility] ER, Patient was subsequently admitted to the inpatient hospitalist service @ [facility] on 11/28/2024 with the following diagnosis: 1. Intractable pain with right ureterolithiasis with hydroureteronephrosis. The following medical issues were addressed while the patient remained in [facility] from 11/28/2024 through 11/29/2024: #Ureterolithiasis/abnormal UA-patient with 2 mm obstructing ureteral stone at the right ureterovesicular junction with hydroureteronephrosis. UA with RBCs and 4+ bacteria but a lot of epithelial cells and 0 WBCs-this is contamination and not indicative of infection. There were no other signs of sepsis, no fever or leukocytosis. Patient received ceftriaxone 2g IV x 1 dose (11/28/2024, 6:11am), but no further antibiotics are indicated. Patient also received flomax 0.4mg PO x 1 dose (11/28/2024, 6:14am) in [facility] ER, followed by flomax 0.4mg PO qhs x 1 dose (11/28/2024, 9:33pm) in [facility] Med-Surg bed #N383-2, as expulsive therapy. Patient will continue this medication on hospital discharge home on 11/29/2024. To this end, patient's [id number], [address] [place] [address], received an electronic prescription for flomax 0.4mg PO qhs, #30 tablets, no refills, on 11/29/2024, prior to hospital discharge home on 11/29/2024. Patient also underwent cystoscopy, right ureteroscopy, stone basketing, and right stent placement (11/28/2024, 2:57pm) with [facility] Urologist Dr. Adam Gallegos. Subsequently, patient reported that she suffered from urinary incontinence overnight, and hence, Urology Service removed right stent on 11/29/2024 am, prior to hospital discharge home on 11/29/2024. Patient feels well and has no complaints at all on 11/29/2024. #Nausea/vomiting-secondary to ureterolithiasis. RESOLVED. #Depression-no acute issues/no suicidal ideation. Resume home-scheduled nortriptyline 100mg PO qhs and mirtazapine 30mg PO qhs on hospital discharge back to home on 11/29/2024. - Hold home mirtazapine while n.p.o. and with nausea #Abdominal Migraines-no acute issues. Resume home-scheduled frovatriptan 2.5mg PO UD prn migraine headache and gabapentin 100mg PO tid on hospital discharge back to home on 11/29/2024. DVT prophylaxis-SCDs Disposition-FULL CODE @ home. ACLS was never performed. There were no adverse events noted with this hospitalization. Condition of patient remains fair. Patient underwent cystoscopy, right ureteroscopy, stone basketing, and right stent placement (11/28/2024, 2:57pm) with [facility] Urologist Dr. Adam Gallegos. Subsequently, patient reported that she suffered from urinary incontinence overnight, and hence, Urology Service removed right stent on 11/29/2024 am, prior to hospital discharge home on 11/29/2024. Patient feels well and has no complaints at all on 11/29/2024. Subsequently, patient was discharged back to her home on 11/29/2024, and will follow up with her PCP Dr. Kajal Howe within 5-7 days of hospital discharge. Admission HPI Per Admitting Provider This patient is a 49-year-old female with a history of cyclic vomiting syndrome, adrenal nodule, depression, migraines who presents to the ED with acute onset of right lower abdominal pain with associated nausea/vomiting. It has been going on for 4 hours. No fevers but has had chills. She tried taking Ativan and a promethazine suppository at home without relief of her symptoms. She did have some urinary frequency and hesitancy at the onset of her symptoms but denies dysuria. The pain radiates around to the right side of her back. She was found on CT abdomen/pelvis to have a right UVJ 2 mm kidney stone with hydroureteronephrosis. Her UA showed blood but no WBCs. She did have 11-20 epithelial cells and 4+ bacteria which is likely contamination and not true infection. She was given ceftriaxone and a urine culture was sent. She will be admitted for intractable pain with right ureterolithiasis with hydroureteronephrosis. Discharge Exam Constitutional General: Comfortable, coherent, cooperative. Wide awake and alert. Not confused, lethargic, or obtunded. Patient speaks in complete, fluent, and articulate sentences without pause, cough, or wheeze, with O2 sat 99% on room air (11/29/2024, 12:23pm). HEENT: Normocephalic, atraumatic. Extra-ocular muscles intact. Pupils equally round and reactive to light. No nystagmus, gaze paresis, anisocoria, miosis, mydriasis, hyphema, scleral injection, conjunctivitis, or pterygium. No otorrhea. No pharyngeal erythema, edema, or discharge. Neck: Supple, no stridor, bruit, goiter, or hepato-jugular reflux. Jugular venous pressure is estimated to be 3 cm above the sternal angle of Alhaji, which in turn, is 5 cm above the level of the right atrium; with jugular venous pressure estimated to be 8 cm, then, there is no jugular venous distention on 11/29/2024. Lymphatics: No cervical (anterior/posterior), supraclavicular, infraclavicular, axillary, epitrochlear, or inguinal adenopathy. Chest: Symmetric rise and fall with respirations. Non-tender to palpation. Lungs: Clear to auscultation and percussion. No audible expiratory wheeze, egophony, pectoriloquy, increase in tactile fremitus, or flatness/dullness to percussion at the bases. Heart: Regular rate and rhythm. S1 and S2 noted. No S3 or S4 summation gallop. No tripartite friction rub. Grade II/ early systolic murmur @ LLSB without radiation to the carotids, axilla, or back, and which remains invariant in regards to the respiratory cycle. Abdomen: Soft, non-tender, non-distended. No rebound, guarding, Arrooy's sign, or organomegaly. Bowel sounds auscultated in all 4 quadrants. Extremities: No clubbing, cyanosis, or edema in upper extremities or lower extremities bilaterally. 2+ pedal pulses bilaterally. Skin: No decubitus ulcer, exanthem, or enanthem. Genito-urinary: No urethral discharge. No gonzalez catheter. Patient walks from bed to bedside commode and back to bed without difficulty. Neurology: Alert and oriented in regards to person, place, time, and situation. DTR+ and symmetric. 5/5 motor strength in all 4 extremities, both proximally and distally. No pronator drift. No facial droop. No dysarthria. Psychiatry: No homicidal ideation. No suicidal ideation. No flat affect; smiles appropriately. Discharge Plan Discharge Items Patient Disposition: Home - Self-Care Reason For Visit: URETEROLITHIASIS Discharge Diagnosis: recurrent right-sided ureterolithiasis Condition on Discharge: Good Activity: Resume your previous activity Lifting: Gradually increase as tolerated Bathing: No limitations Sexual Activity: When tolerated Driving/Machine Use: No limitations Weightbearing: Full weightbearing Non-emergency contact: Primary Care Provider Call non-emergency contact if: you have any medication questions Follow-up/Referrals: Shyam Rdz [Primary Care Provider] - Diet: Heart Healthy Addtl Attending Provider Instructions: See your PCP Dr. Shyam Rdz within 5-7 days of hospital discharge. Pending Studies at Discharge: No Stand-Alone Forms: My [facility] Sonicbids, Smoking Cessation Medications and DC Order Prescriptions: New tamsulosin 0.4 mg Capsule 0.4 mg PO HS Qty: 30 0RF Continued promethazine 25 mg Suppository 25 mg IL Q6H PRN (Reason: Nausea) rizatriptan [Maxalt] 10 mg Tablet 10 mg PO DIRECTED PRN (Reason: Migraine Headache) mirtazapine [Remeron] 30 mg Tablet 30 mg PO HS ergocalciferol (vitamin D2) [Vitamin D2] 1,250 mcg (50,000 unit) Capsule 1,250 mcg PO WK nortriptyline 50 mg Capsule 100 mg PO HS gabapentin 100 mg Tablet 100 mg PO TID ondansetron 4 mg tablet,disintegrating 4 mg PO Q6H PRN (Reason: nausea and vomiting) Qty: 12 0RF levonorgestrel-ethinyl estrad 0.1-20 mg-mcg tablet 1 tab PO DAILY atenolol 25 mg tablet 25 mg PO DAILY lorazepam 0.5 mg tablet 0.5 mg PO DIRECTED PRN (Reason: Other) frovatriptan 2.5 mg tablet 2.5 mg PO UD PRN (Reason: Migraine Headache) Rx Instructions: will be replacing Maxalt naproxen 500 mg tablet 500 mg PO Q12 PRN (Reason: Pain) CoQ-10 1 cap PO DAILY cyanocobalamin (vitamin B-12) 1 tab PO DAILY Discharge Orders: Discharge Order (Routine); Ordered 11/29/24 Ordered By: Adam Zuniga Admission Data Admit Date/Time: 11/28/24 06:37 Attending Provider: Adam Zuniga Admit Provider: Jeanine Cota Primary Care Provider: Shyam Rdz Other Providers: Vincent,Ang W. Hospital Stay Data Consultations 11/28/24 06:37 Consult Urology Routine Procedures Performed Operation Date: 11/28/24 10:30 Actual Procedures p Cystoscopy, stone basketing, Right Stent Placement(Right) - Adam Gallegos MD Diagnostic Imagining Performed 11/28/24 FL retrograde includes kub Routine 11/28/24 03:50 CT abd pelvis IV con only Stat Pending Results Patient Have Any Pending Studies at Discharge: No Discharge Instructions Given to Patient (Per Discharging Provider) See your PCP Dr. Shyam Rdz within 5-7 days of hospital discharge. Total Time Total Time Spent Total Time Spent (In Minutes): 35 minutes. Of this time period, 19 minutes were spent in coordinating patient's discharge. Coding Level of Care Code 99043 INP/OBS DISCH >30 MIN Diagnoses Calculus of ureterovesical junction (UVJ) N20.1 Nausea & vomiting R11.2
--- NOTE | 2024-11-29 13:56 | Electrocardiogram Report ---
Test Reason : Blood Pressure : */* mmHG Vent. Rate : 64 BPM Atrial Rate : 64 BPM P-R Int : 146 ms QRS Dur : 78 ms QT Int : 428 ms P-R-T Axes : 67 39 54 degrees QTcB Int : 441 ms Normal sinus rhythm Normal ECG When compared with ECG of 11-Dec-2021 22:16, No significant change was found Confirmed by Cristopher Sales ([id number]) on 11/29/2024 1:56:12 PM Referred By: REFERRED SELF Confirmed By: Cristopher Sales
[2024-11-29] MEDS ORDERED: NORTRIPTYLINE HCL 25 MG CAP PO SCH (21:00)
[2024-11-29] MEDS ORDERED: MIRTAZAPINE TAB 15 MG TAB PO SCH (21:00)
[2024-12-04] MEDS ORDERED: ERGOCALCIFEROL 1250 MCG (50,000 UNITS) CAP PO SCH (09:00)
[2024-12-06 02:18] LABS: Component 2 DNR; Source RIGHT URETERAL STONE
== END 2024-11-29 12:42 | disposition home or self-care (01) ==
LOC: ED 03:40 → EDINP 06:37 → INTOOBSV 06:37 → SUATTDRO 06:37 → EDINP 14:17 → 3N 16:02